=== PATIENT | male | born 1970 | race Caucasian/White ===

== ENCOUNTER 2019-07-03 20:58 | Inpatient (IN) ==
[2019-07-03] MEDS ORDERED: ALBUT/IPRATROP 3MG/0.5MG NEB 3 ML VIAL NEB STA ×3 (21:15→22:03)
[2019-07-03] MEDS ORDERED: ACETAMINOPHEN 1,000 MG/100 ML VIAL IV STA (21:15)
[2019-07-03] MEDS ORDERED: SODIUM CHLORIDE 0.9% 1000ML 1,000 ML IV ONE (21:15)
[2019-07-03 21:38] LABS: Basophils # (auto) 0.02 K/uL (0-0.2); Basophils % (auto) 0.2 %; Hematocrit (blood only) 47.7 % (42-52); Hemoglobin 16.1 g/dL (14.0-18.0); Immature Granulocytes # (auto) 0.02 K/uL (0.00-0.02); Immature Granulocytes % (auto) 0.2 %; Lymphocytes # (auto) 1.77 K/uL (1.2-3.4); Lymphocytes % (auto) 17.8 %; Mean Corpuscular Hemoglobin 33.8 pg (25-34); Mean Corpuscular Hgb Conc 33.8 g/dL (32-36); Mean Platelet Volume 9.4 fL (7.4-10.4); Monocytes # (auto) 0.78 K/uL (0.11-0.59); Monocytes % (auto) 7.8 %; Neutrophils # (auto) 7.37 K/uL (1.4-6.5); Platelet Count 231 K/uL (130-400); RDW Coefficient of Variation 14.9 % (11.5-14.5); RDW Standard Deviation 54.7 fL (36.4-46.3); Red Blood Count 4.77 M/uL (4.7-6.1); White Blood Count 9.96 K/uL (4.8-10.8)
[2019-07-03 21:43] LABS: Base Excess VBG 4.1 mEq/L; pH VBG 7.41 (7.36-7.41)
--- NOTE | 2019-07-03 21:47 | XRay Report ---
XR chest 1V portable CLINICAL HISTORY: 49 years-old Male presenting with SEPSIS. TECHNIQUE: Portable upright AP view of the chest was obtained. COMPARISON: None. FINDINGS: Median sternotomy wires. Cardiac silhouette mildly enlarged. Pulmonary vasculature and interstitium m ildly prominent. The right hemidiaphragm is poorly delineated. Bibasilar opacities, right greater rosemarie n left. Underlying trace pleural effusion is not excluded. No large pneumothorax. Osseous structures normal. : Is beneath the presumed elevated right hemidiaphragm. IMPRESSION: 1. Bibasilar opacities. Given the appearance of apparent elevation of the right hemidiaphragm with c olonic bowel gas beneath the diaphragm, it is difficult to exclude an underlying right basilar infilt rate though bibasilar atelectasis is favored. 2. Mild volume overload and congestive change. No farhat pulmonary edema. ACT 112: Negative or not required by law. Electronically signed by: Cullen Mccarthy M.D. 07/03/2019 9:45 PM
[2019-07-03 21:55] LABS: INR 1.1 (0.9-1.1); Partial Thromboplastin Time 27.7 Seconds (21.0-31.0); Prothrombin Time 10.9 Seconds (9.0-12.0)
[2019-07-03 21:56] LABS: Alanine Aminotransferase 22 U/L (12-78); Albumin Level 3.4 gm/dl (3.4-5.0); Aspartate Aminotransferase 22 U/L (15-37); BUN Creatinine Ratio 15.2 (10-20); Blood Urea Nitrogen 20 mg/dl (7-18); Calcium 9.1 mg/dl (8.5-10.1); Carbon Dioxide 28 mmol/L (21-32); Chloride 107 mmol/L (98-107); Creatinine Clr Calc Pharmacy 46.2 ml/min; Est GFR (African American) 73.2; Est GFR (Non-African American) 63.2; Glucose 159 mg/dl (70-99); Magnesium 1.9 mg/dl (1.8-2.4); Potassium 3.8 mmol/L (3.5-5.1); Sodium 140 mmol/L (136-145)
[2019-07-03 21:58] LABS: Albumin Globulin Ratio 0.9 (0.9-2); Alkaline Phosphatase 50 U/L (45-117); Bilirubin,Total 0.3 mg/dl (0.2-1); Globulin 3.6 gm/dl (2.5-4.0)
[2019-07-03] MEDS ORDERED: OPTIRAY 320 125ml IV PRN (22:14)
[2019-07-03] MEDS ORDERED: SODIUM CHLORIDE 0.9% 500 ML IV SCH (22:15)
[2019-07-03 22:19] LABS: Influenza A virus by PCR Neg for Influ A (Neg); Influenza B virus by PCR Neg for Influ B (Neg)
--- NOTE | 2019-07-03 22:32 | CT Scan Report ---
CT angio chest PE protocol CLINICAL HISTORY: 49 years-old Male presenting with hypoxia, fever, respiratory distress. TECHNIQUE: Multidetector CT angiography of the chest was performed after administration of intravenou s contrast. 3-D volumetric and/or maximum intensity projection (MIP) images were subsequently reconst ructed for review. IV contrast: 115 mL of Optiray 320. One or more dose lowering techniques were used consistent with the principles of ALARA (as low as reasonably achievable), including automatic expos ure control, mA or kV adjustment to individual patient size, and/or use of iterative reconstruction. COMPARISON: Chest x-ray performed earlier today and CT of abdomen and pelvis in 2013. CT DOSE (mGy.cm): The estimated cumulative dose is 450.90 mGy.cm. FINDINGS: Coupler topogram: Unremarkable. Pulmonary vasculature: The study is suboptimal for the assessment of the pulmonary vascular tree secondary to timing of the contrast bolus and respiratory motion artifact. No filling defect within the pulmonary arteries to noyola ggest embolus. Main pulmonary artery is not enlarged. No flattening of the interventricular septum. N o intracardiac filling defect. No reflux of contrast into the hepatic veins. Remaining chest: Soft tissues: Normal thyroid and thoracic inlet. Multiple prominent mediastinal lymph nodes, nonspeci fic. Normal aorta. Normal heart size. No pericardial or pleural effusion. Large bowel and small bowel containing right Bochdalek hernia. This previously did not contain small bowel in 2013 and was small er in size. No bowel obstruction. Moderate fat-containing left Bochdalek hernia. This was previously small in 2013. Lungs and airways: No pneumothorax. Central airways patent. Pulmonary arteries mildly enlarged relati ve to adjacent bronchi. No interlobular septal thickening. Mosaic attenuation. Extensive compressive atelectasis of the left lower lobe. There is also dependent atelectasis elsewhere. Respiratory motion artifact degrades evaluation of lung parenchyma to a moderate degree. Musculoskeletal: Degenerative changes of the spine. Well-healed sternotomy noted. IMPRESSION: 1. Allowing for suboptimal image quality, no evidence of pulmonary embolus. 2. Extensive atelectasis. No focal infiltrate to suggest pneumonia. 3. Significant interval increased size of the large right and moderate left Bochdalek hernias. This contains a significant amount of aren't obstructed small large bowel. ACT 112: Negative or not required by law. Electronically signed by: Cullen Mccarthy M.D. 07/03/2019 10:30 PM
[2019-07-03] MEDS ORDERED: ALBUMIN 25% 50 ML IV ONE (22:58)
--- NOTE | 2019-07-03 23:02 | Emergency Department Note ---
Entered by Graeme Marrufo acting as a scribe for History of Present Illness General Chief complaint: Flu Like Symptoms Stated complaint: FEVER, CONGESTION, SORE THROAT Time Seen by Provider: 07/03/19 21:12 Source: other (nurse) Limitations: other (mental status) History of Present Illness Onset (ago): day(s) (today) Location: head (general) Severity: severe (78% on room air) Pain Consistency: + constant Quality: + other (fever) Associated symptoms: + other (Positive for cough, congestion, SOB, and a fever.) The patient is a 49 year old male who presents to the emergency department with complaints of a constant fever beginning today. Per nurse, the patient is a resident at [facility]. She states that the patient developed a cough, congestion, SOB, and a fever today. She notes that the patient is 78% on room air, but she states that his oxygen saturation increases to 92% on 4L of oxygen. She notes that the patient is deaf but is able to read lips. HPI limited secondary to mental status. Home Medications Home Medications Medication Instructions Recorded Confirmed Type Biotene Dry Mouth Oral Rinse 1 tbsp PO BID 09/22/18 09/27/18 History Eucerin 1 applic TOPICAL 3XWK 09/22/18 09/27/18 History PreviDent 5000 Dry Mouth 1 applic DENTAL HS 09/22/18 09/27/18 History clobetasol 1 applic TOPICAL WK 09/22/18 09/27/18 History ketoconazole 1 dose TOPICAL 3XWK 09/22/18 09/27/18 History levothyroxine [Synthroid] 25 mcg PO QAM 09/22/18 09/27/18 History multivitamin 1 tab PO QAM 09/22/18 09/27/18 History pantoprazole 20 mg PO QAM 09/22/18 09/27/18 History polyethylene glycol 3350 [Miralax] 17 g PO QAM 09/22/18 09/27/18 History sertraline 50 mg PO QAM 09/22/18 09/27/18 History Allergies Allergy/AdvReac Type Severity Reaction Status Date / Time Bactrim Allergy rash Verified 09/10/12 09:34 sulfamethoxazole Allergy rash Verified 09/27/18 09:54 trimethoprim Allergy rash Verified 09/27/18 09:54 Past Med/Surg History Social History Preferred Language: Macedonian Communication 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 Physical Exam Vital Signs Vital Signs - 24 hr 07/03/19 20:59 07/03/19 21:17 07/03/19 21:28 Temperature 38.2 C H Temperature Source Oral Pulse Rate 104 H Pulse Rate [Finger] 101 H Respiratory Rate 24 31 H Respiratory Effort / Characteristics Non-Labored Blood Pressure 115/57 L Blood Pressure [Right Arm] Blood Pressure Mean 76 Blood Pressure Mean [Right Arm] Pulse Oximetry 84 L 93 92 Oxygen Delivery Method Room Air Nasal Cannula Nasal Cannula Oxygen Flow Rate 4 4 Sepsis Recent Fever Within 48 Hours Yes Sepsis Action Taken by Nursing Physician Notified 07/03/19 21:39 07/03/19 21:51 07/03/19 21:53 Temperature Temperature Source Pulse Rate Pulse Rate [Finger] 96 H 92 H 94 H Respiratory Rate 28 H 31 H 28 H Respiratory Effort / Characteristics Labored Non-Labored Blood Pressure Blood Pressure [Right Arm] 118/59 L 123/58 L Blood Pressure Mean Blood Pressure Mean [Right Arm] 78 79 Pulse Oximetry 92 92 94 Oxygen Delivery Method Nasal Cannula Nasal Cannula Nasal Cannula Oxygen Flow Rate 4 4 4 Sepsis Recent Fever Within 48 Hours Sepsis Action Taken by Nursing 07/03/19 22:02 07/03/19 22:24 07/03/19 22:30 Temperature 37.7 C H Temperature Source Oral Pulse Rate Pulse Rate [Finger] 99 H 107 H 102 H Respiratory Rate 28 H 28 H 28 H Respiratory Effort / Characteristics Blood Pressure Blood Pressure [Right Arm] 107/52 L 106/61 99/54 L Blood Pressure Mean Blood Pressure Mean [Right Arm] 70 76 69 Pulse Oximetry 96 91 90 Oxygen Delivery Method Nebulizer Nasal Cannula Nasal Cannula Oxygen Flow Rate 4 4 Sepsis Recent Fever Within 48 Hours Sepsis Action Taken by Nursing 07/03/19 22:37 07/03/19 22:45 Temperature Temperature Source Pulse Rate Pulse Rate [Finger] 106 H 123 H Respiratory Rate 30 H 28 H Respiratory Effort / Characteristics Labored Blood Pressure Blood Pressure [Right Arm] 97/51 L Blood Pressure Mean Blood Pressure Mean [Right Arm] 66 Pulse Oximetry 92 93 Oxygen Delivery Method Nasal Cannula Nebulizer Oxygen Flow Rate 4 Sepsis Recent Fever Within 48 Hours Sepsis Action Taken by Nursing EYES: Conjunctivae and EOM are normal. Pupils are equal, round, and reactive to light. Right eye exhibits no discharge. Left eye exhibits no discharge. No scleral icterus. NECK: Normal range of motion. Neck supple. No JVD present. No spinous process tenderness present. No carotid bruit present. No rigidity. No tracheal deviation and normal range of motion present. No Brudzinski's sign and no Kernig's sign noted. CV: Tachycardic, regular rhythm, normal heart sounds and intact distal pulses. There is no peripheral edema. Palpable radial pulses bue. PULM/CHEST: Rhonchi bilaterally, tachypneic. ABD: The abdomen is soft. Bowel sounds are normal. He has no distension. No mass is present. There is no tenderness. There is no rebound, no guarding, no Carpenter's sign and no tenderness at McBurney's point. Rovsig negative. MUSC/SKEL: Normal range of motion. There is no peripheral edema, tenderness or deformity. LYMPH: No cervical adenopathy. NEURO: Motor and sensation intact. SKIN: Skin is warm and dry. He is not diaphoretic. Course Course 2111: The patient was evaluated in room C3. A complete history and physical exam was performed. 2119: Per review of EMR, the patient has a history of down syndrome and Wo riw-Vyrhmbxep-Enudj syndrome. 2146: I rechecked the patient. He is still having rhonchi bilaterally. He is now wheezing. His oxygen saturation is stable on supplement oxygen via nasal cannula. He will receive a repeat breathing treatment. 2203: I reevaluated the patient. His vitals are stable on supplemental oxygen. He is on his second Duoneb but continues to have wheezing and rhonchi. He is d iaphoretic at this time. The patient's labs are within normal limits. His influenza, lactate, and procalcitonin are pending. He will be sent for a CTA chest. 2239: I discussed the patient's case with Dr. Wesley - Felipe Chen. 2252: I reevaluated the patient. His CTA was negative for PE or pneumonia. Lactate, influenza, and procalcitonin are negative. The patient is receiving his third Duoneb. He was admitted to Dr. Wesley. Consultations Consultation #1: I [facility] the [facility] Time: 22:40 Administered Medications Sodium Chloride (Nss) 500 mls @ 125 mls/hr IV .Q4H ERICK Stop: 08/02/19 22:14 Last Admin: 07/03/19 22:10 Dose: 125 mls/hr Documented by: [id number] Ioversol (Optiray 320 125ml) 115 ml IV ONCE PRN PRN Reason: Interaction Checking Stop: 07/07/19 22:13 Last Admin: 07/03/19 22:14 Dose: 115 ml Documented by: [id number] Discontinued Medications Albuterol (Duoneb) 3 ml NEB NOW STA Stop: 07/03/19 21:16 Last Admin: 07/03/19 21:28 Dose: 3 ml Documented by: [id number] Albuterol (Duoneb) 3 ml NEB NOW STA Stop: 07/03/19 21:17 Last Admin: 07/03/19 21:51 Dose: 3 ml Documented by: [id number] Albuterol (Duoneb) 3 ml NEB NOW STA Stop: 07/03/19 22:04 Last Admin: 07/03/19 22:35 Dose: 3 ml Documented by: [id number] Sodium Chloride (Nss 1000ml) 1,000 mls @ 999 mls/hr IV .Q1H1M ONE Stop: 07/03/19 22:15 Last Infusion: 07/03/19 22:10 Dose: 0 mls/hr Documented by: [id number] Admin: 07/03/19 21:23 Dose: 999 mls/hr Documented by: [id number] Acetaminophen (Ofirmev) 1,000 mg in 100 mls @ 400 mls/hr IV NOW STA Stop: 07/03/19 21:29 Last Infusion: 07/03/19 21:39 Dose: 0 mls/hr Documented by: [id number] Admin: 07/03/19 21:24 Dose: 400 mls/hr Documented by: [id number] Critical Care Time Critical Care Time: Yes Total Critical Care Time: 80 I have personally spent 80 minutes of critical care time in the direct management of this patient. This includes bedside care, interpretation of diagnostic studies, and testing, discussion with consultants, patient, and family members, and other required patient management activities. This 80 minutes is in excess of all separately billable procedures. Medical Decision Making Medical Records Attestation: I reviewed the patient's medical records. Home Medications Current Medication List: was personally reviewed by me Laboratory Data Attestation: I reviewed the patient's lab results. Result diagrams: 07/03/19 21:26 07/03/19 21:26 Lab Results 07/03/19 07/03/19 07/03/19 Range/Units 21:11 21:26 21:26 WBC 9.96 (4.8-10.8) K/uL RBC 4.77 (4.7-6.1) M/uL Hgb 16.1 (14.0-18.0) g/dL Hct 47.7 (42-52) % MCV 100.0 (80-100) fL MCH 33.8 (25-34) pg MCHC 33.8 (32-36) g/dL RDW Std Deviation 54.7 H (36.4-46.3) fL RDW Coeff of Soraya 14.9 H (11.5-14.5) % Plt Count 231 (130-400) K/uL MPV 9.4 (7.4-10.4) fL Immature Gran % (Auto) 0.2 % Neut % (Auto) 74.0 % Lymph % (Auto) 17.8 % [place] % (Auto) 7.8 % Eos % (Auto) 0.0 % Baso % (Auto) 0.2 % Immature Gran # (Auto) 0.02 (0.00-0.02) K/uL Neut # (Auto) 7.37 H (1.4-6.5) K/uL Lymph # (Auto) 1.77 (1.2-3.4) K/uL [place] # (Auto) 0.78 H (0.11-0.59) K/uL Eos # (Auto) 0.00 (0-0.5) K/uL Baso # (Auto) 0.02 (0-0.2) K/uL PT 10.9 (9.0-12.0) Seconds INR 1.1 (0.9-1.1) APTT 27.7 (21.0-31.0) Seconds PTT Ratio 1.0 VBG pH (7.36-7.41) VBG pCO2 (38-50) mmHg VBG pO2 mmHg VBG HCO3 mmol/L VBG O2 Saturation % VBG Base Excess mEq/L Barometric Pressure mm/Hg Sodium (136-145) mmol/L Potassium (3.5-5.1) mmol/L Chloride (98-107) mmol/L Carbon Dioxide (21-32) mmol/L Anion Gap (3-11) BUN (7-18) mg/dl Creatinine (0.6-1.4) mg/dl Est Cr Clr Drug Dosing ml/min Est GFR ( Amer) Est GFR (Non-Af Amer) BUN/Creatinine Ratio (10-20) Glucose (70-99) mg/dl Lactate (0.4-2.0) mmol/L Calcium (8.5-10.1) mg/dl Magnesium (1.8-2.4) mg/dl Total Bilirubin (0.2-1) mg/dl AST (15-37) U/L ALT (12-78) U/L Alkaline Phosphatase (45-117) U/L Total Protein (6.4-8.2) gm/dl Albumin (3.4-5.0) gm/dl Globulin (2.5-4.0) gm/dl Albumin/Globulin Ratio (0.9-2) Procalcitonin (0-0.5) ng/ml Influenza Type A (PCR) Neg for Influ A (Neg) Influenza Type B (PCR) Neg for Influ B (Neg) 07/03/19 07/03/19 07/03/19 Range/Units 21:26 21:26 21:26 WBC (4.8-10.8) K/uL RBC (4.7-6.1) M/uL Hgb (14.0-18.0) g/dL Hct (42-52) % MCV (80-100) fL MCH (25-34) pg MCHC (32-36) g/dL RDW Std Deviation (36.4-46.3) fL RDW Coeff of Soraya (11.5-14.5) % Plt Count (130-400) K/uL MPV (7.4-10.4) fL Immature Gran % (Auto) % Neut % (Auto) % Lymph % (Auto) % [place] % (Auto) % Eos % (Auto) % Baso % (Auto) % Immature Gran # (Auto) (0.00-0.02) K/uL Neut # (Auto) (1.4-6.5) K/uL Lymph # (Auto) (1.2-3.4) K/uL [place] # (Auto) (0.11-0.59) K/uL Eos # (Auto) (0-0.5) K/uL Baso # (Auto) (0-0.2) K/uL PT (9.0-12.0) Seconds INR (0.9-1.1) APTT (21.0-31.0) Seconds PTT Ratio VBG pH (7.36-7.41) VBG pCO2 (38-50) mmHg VBG pO2 mmHg VBG HCO3 mmol/L VBG O2 Saturation % VBG Base Excess mEq/L Barometric Pressure mm/Hg Sodium 140 (136-145) mmol/L Potassium 3.8 (3.5-5.1) mmol/L Chloride 107 (98-107) mmol/L Carbon Dioxide 28 (21-32) mmol/L Anion Gap 5.0 (3-11) BUN 20 H (7-18) mg/dl Creatinine 1.30 (0.6-1.4) mg/dl Est Cr Clr Drug Dosing 46.2 ml/min Est GFR ( Amer) 73.2 Est GFR (Non-Af Amer) 63.2 BUN/Creatinine Ratio 15.2 (10-20) Glucose 159 H (70-99) mg/dl Lactate 0.9 (0.4-2.0) mmol/L Calcium 9.1 (8.5-10.1) mg/dl Magnesium 1.9 (1.8-2.4) mg/dl Total Bilirubin 0.3 (0.2-1) mg/dl AST 22 (15-37) U/L ALT 22 (12-78) U/L Alkaline Phosphatase 50 (45-117) U/L Total Protein 7.0 (6.4-8.2) gm/dl Albumin 3.4 (3.4-5.0) gm/dl Globulin 3.6 (2.5-4.0) gm/dl Albumin/Globulin Ratio 0.9 (0.9-2) Procalcitonin < 0.05 (0-0.5) ng/ml Influenza Type A (PCR) (Neg) Influenza Type B (PCR) (Neg) 07/03/19 Range/Units 21:27 WBC (4.8-10.8) K/uL RBC (4.7-6.1) M/uL Hgb (14.0-18.0) g/dL Hct (42-52) % MCV (80-100) fL MCH (25-34) pg MCHC (32-36) g/dL RDW Std Deviation (36.4-46.3) fL RDW Coeff of Soraya (11.5-14.5) % Plt Count (130-400) K/uL MPV (7.4-10.4) fL Immature Gran % (Auto) % Neut % (Auto) % Lymph % (Auto) % [place] % (Auto) % Eos % (Auto) % Baso % (Auto) % Immature Gran # (Auto) (0.00-0.02) K/uL Neut # (Auto) (1.4-6.5) K/uL Lymph # (Auto) (1.2-3.4) K/uL [place] # (Auto) (0.11-0.59) K/uL Eos # (Auto) (0-0.5) K/uL Baso # (Auto) (0-0.2) K/uL PT (9.0-12.0) Seconds INR (0.9-1.1) APTT (21.0-31.0) Seconds PTT Ratio VBG pH 7.41 (7.36-7.41) VBG pCO2 48 (38-50) mmHg VBG pO2 43 mmHg VBG HCO3 30 mmol/L VBG O2 Saturation 77.0 % VBG Base Excess 4.1 mEq/L Barometric Pressure 737.6 mm/Hg Sodium (136-145) mmol/L Potassium (3.5-5.1) mmol/L Chloride (98-107) mmol/L Carbon Dioxide (21-32) mmol/L Anion Gap (3-11) BUN (7-18) mg/dl Creatinine (0.6-1.4) mg/dl Est Cr Clr Drug Dosing ml/min Est GFR ( Amer) Est GFR (Non-Af Amer) BUN/Creatinine Ratio (10-20) Glucose (70-99) mg/dl Lactate (0.4-2.0) mmol/L Calcium (8.5-10.1) mg/dl Magnesium (1.8-2.4) mg/dl Total Bilirubin (0.2-1) mg/dl AST (15-37) U/L ALT (12-78) U/L Alkaline Phosphatase (45-117) U/L Total Protein (6.4-8.2) gm/dl Albumin (3.4-5.0) gm/dl Globulin (2.5-4.0) gm/dl Albumin/Globulin Ratio (0.9-2) Procalcitonin (0-0.5) ng/ml Influenza Type A (PCR) (Neg) Influenza Type B (PCR) (Neg) Imaging Data Radiologist's Impression: Radiology results as stated below per my review and the radiologist's interpretation: XR chest 1V portable FINDINGS: Median sternotomy wires. Cardiac silhouette mildly enlarged. Pulmonary vasculature and interstitium mildly prominent. The right hemidiaphragm is poorly delineated. Bibasilar opacities, right greater than left. Underlying trace pleural effusion is not excluded. No large pneumothorax. Osseous structures normal. : Is beneath the presumed elevated right hemidiaphragm. IMPRESSION: 1. Bibasilar opacities. Given the appearance of apparent elevation of the right hemidiaphragm with colonic bowel gas beneath the diaphragm, it is difficult to exclude an underlying right basilar infiltrate though bibasilar atelectasis is favored. 2. Mild volume overload and congestive change. No farhat pulmonary edema. ACT 112: Negative or not required by law. Electronically signed by: Cullen Mccarthy M.D. 07/03/2019 9:[address] angio chest PE protocol FINDINGS: Digital Cartographic Technician topogram: Unremarkable. Pulmonary vasculature: The study is suboptimal for the assessment of the pulmonary vascular tree secondary to timing of the contrast bolus and respiratory motion artifact. No filling defect within the pulmonary arteries to suggest embolus. Main pulmonary artery is not enlarged. No flattening of the interventricular septum. No intracardiac filling defect. No reflux of contrast into the hepatic veins. Remaining chest: Soft tissues: Normal thyroid and thoracic inlet. Multiple prominent mediastinal lymph nodes, nonspecific. Normal aorta. Normal heart size. No pericardial or pleural effusion. Large bowel and small bowel containing right Bochdalek hernia. This previously did not contain small bowel in 2013 and was smaller in size. No bowel obstruction. Moderate fat-containing left Bochdalek hernia. This was previously small in 2013. Lungs and airways: No pneumothorax. Central airways patent. Pulmonary arteries mildly enlarged relative to adjacent bronchi. No interlobular septal thickening. Mosaic attenuation. Extensive compressive atelectasis of the left lower lobe. There is also dependent atelectasis elsewhere. Respiratory motion artifact degrades evaluation of lung parenchyma to a moderate degree. Musculoskeletal: Degenerative changes of the spine. Well-healed sternotomy noted. IMPRESSION: 1. Allowing for suboptimal image quality, no evidence of pulmonary embolus. 2. Extensive atelectasis. No focal infiltrate to suggest pneumonia. 3. Significant interval increased size of the large right and moderate left Bochdalek hernias. This contains a significant amount of aren't obstructed small large bowel. ACT 112: Negative or not required by law. Electronically signed by: Cullen Mccarthy M.D. 07/03/2019 10:30 PM ECG Data Attestation: I personally reviewed and interpreted this ECG as follows: Indication: + SOB/dyspnea Rate (beats per minute): 98 Rhythm: + sinus rhythm ECG ST segments: no ST depression and no ST elevation Additional Comments: QR/QRS/QTC within normal limits. Blood Pressure Blood Pressure Findings: Normal blood pressure Blood Pressure Disposition: did not require urgent referral MDM Narrative 2111: The patient was evaluated in room C3. A complete history and physical exam was performed. 2119: Per review of EMR, the patient has a history of down syndrome and Kampd-Wcajbqgiq-Dsvnd syndrome. 2146: I rechecked the patient. He is still having rhonchi bilaterally. He is now wheezing. His oxygen saturation is stable on supplement oxygen via nasal cannula. He will receive a repeat breathing treatment. 2203: I reevaluated the patient. His vitals are stable on supplemental oxygen. He is on his second Duoneb but continues to have wheezing and rhonchi. He is diaphoretic at this time. The patient's labs are within normal limits. His influenza, lactate, and procalcitonin are pending. He will be sent for a CTA chest. 0: I discussed the patient's case with Dr. Wesley - [facility]. 2253: I reevaluated the patient. His CTA was negative for PE or pneumonia. Lactate, influenza, and procalcitonin are negative. The patient is receiving his third Duoneb. He was admitted to Dr. Wesley. Impression & Plan Hypoxia Discharge Plan Visit Data Chief Complaint: Flu Like Symptoms Stated Complaint: FEVER, CONGESTION, SORE THROAT ED Provider: Govind Hollis Discharge Problem: Hypoxia Forms Stand Alone Forms: My [facility] Prescriptions Prescriptions: No Action multivitamin Tablet 1 tab PO QAM RF: 0 ketoconazole 2 % Shampoo 1 dose TOPICAL 3XWK RF: 0 levothyroxine [Synthroid] 25 mcg Tablet 25 mcg PO QAM RF: 0 pantoprazole 20 mg Tablet,Delayed Release (Dr/Ec) 20 mg PO QAM RF: 0 polyethylene glycol 3350 [Miralax] 17 gram/dose Powder 17 g PO QAM RF: 0 clobetasol 0.05 % Solution 1 applic TOPICAL WK RF: 0 sertraline 50 mg Tablet 50 mg PO QAM RF: 0 PreviDent 5000 Dry Mouth 1.1 % Gel 1 applic DENTAL HS RF: 0 Eucerin Cream 1 applic TOPICAL 3XWK RF: 0 Biotene Dry Mouth Oral Rinse Mouthwash 1 tbsp PO BID RF: 0 The scribe's documentation has been prepared under my direction and personally reviewed by me in its entirety. I confirm that the note above accurately reflect s all work, treatment, procedures, and medical decision making performed by me.
[2019-07-03] MEDS ORDERED: DOXYCYCLINE HYCLATE 100 MG in DEXTROSE 5% 100 ML IV STA (23:11)
[2019-07-03] MEDS ORDERED: POTASSIUM CHLORIDE 20 MEQ TABCR PO STA (23:12)
[2019-07-03] MEDS ORDERED: MAGNESIUM SULFATE / D5W 1 GM/100 ML BAG IV STA (23:20)
[2019-07-03 23:34] LABS: NT Pro B Type Natriuretic Pept 159 pg/ml (0-900)
--- NOTE | 2019-07-03 23:41 | History & Physical Report ---
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 Hyperglycemia rule out DM Medical telemetry Supplemental O2 Solu-Medrol 1 dose given complicated bronchitis causing hypoxemia, may benefit from additional steroid doses Doxycycline, nebs RTC IVF Check hemoglobin A1c PT OT eval DVT prophylaxis. Lovenox subcu Full code salesperson [employer] glassware for patient's care is Mr. Blayne Morejon, contact #[phone]. Total critical time was 45 minutes. Text document was generated using [employer] voice recognition software. It may contain grammatical or spelling errors. Kindly contact undersigned for clarification of any documentation item in question. History of Present Illness Chief Complaint: Low O2 as per records Primary Care Provider: Kosta Tovar DO History obtained from patient, caregiver, and records. Limited history from patient secondary to hearing/intellectual impairment. 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 Today patient noted by caregivers to have junky cough, congestion, sore throat, fever symptoms at [facility]. Patient denies chest pain. Admits to some S OB. No witnessed aspiration. No abdominal pain symptoms. No known recent sick contacts. O2 sats noted to be 70s on room air at home. Patient brought to the ER for evaluation. Medical History as above Surgical History : Cochlear device implantation, mitral valve reconstruction, ASD repair Family History : Breast cancer Personal/Social history : Non-smoker, no EtOH intake, [place] resident Allergies Allergy/AdvReac Type Severity Reaction Status Date / Time Bactrim Allergy rash Verified 09/10/12 09:34 sulfamethoxazole Allergy rash Verified 07/03/19 23:12 trimethoprim Allergy rash Verified 07/03/19 23:12 Home Medications Home Medications Medication Instructions Recorded Confirmed Type Biotene Dry Mouth Oral Rinse 1 tbsp PO BID 09/22/18 07/03/19 History Eucerin 1 applic TOPICAL 3XWK 09/22/18 07/03/19 History clobetasol 2 applic TOPICAL WK 09/22/18 07/03/19 History fluoride (sodium) [PreviDent 5000 1 applic DENTAL HS 09/22/18 07/03/19 History Dry Mouth] ketoconazole 1 dose TOPICAL 3XWK 09/22/18 07/03/19 History levothyroxine [Synthroid] 25 mcg PO QAM 09/22/18 07/03/19 History multivitamin 1 tab PO QAM 09/22/18 07/03/19 History pantoprazole 20 mg PO QAM 09/22/18 07/03/19 History sertraline 50 mg PO QAM 09/22/18 07/03/19 History methylcellulose (laxative) 1 ea PO DAILY 07/03/19 07/03/19 History [Citrucel Sugar Free] Past Med/Surg History Social History Preferred Language: Uzbek Communication Ability: Impaired Nitrate Operator Required: No Beliefs That Will Affect Care: None Current Living Situation: Personal Care Facility Current Living Situation Comment: Lives at [facility] Feels Safe at Home: Yes Smoking Status: Never smoker Hx Alcohol Use: No Hx Substance Use: No Review of Systems Review of Systems: Could not be reliably obtained Physical Exam Physical Exam: GENERAL: uncomfortable, hard of hearing, min respiratory distress SKIN: Normal color, warm HEENT: [place] palpebral conjunctivae, no ptosis, dry buccal mucosa, O2 mask in place NECK : Supple, short neck, no tenderness CHEST : Expiratory wheezes, bilateral rhonchi , no tenderness HEART : Tachycardic , no obvious murmurs ABDOMEN: Some distention, nontender EXTREMITIES : No LE swelling/tenderness, no other conspicuous deformities noted NEUROLOGIC : hard of hearing, no facial asymmetry, no other gross focality Results & Data Vital Signs (Past 12 Hours) Vital Signs Temp Pulse Pulse Resp BP BP Pulse Ox 07/03/19 23:23 114 H 24 94/46 L 90 07/03/19 23:01 117 H 32 H 112/51 L 90 07/03/19 22:45 123 H 28 H 97/51 L 93 07/03/19 22:37 106 H 30 H 92 07/03/19 22:30 102 H 28 H 99/54 L 90 07/03/19 22:24 107 H 28 H 106/61 91 07/03/19 22:02 37.7 C H 99 H 28 H 107/52 L 96 07/03/19 21:53 94 H 28 H 123/58 L 94 07/03/19 21:51 92 H 31 H 92 07/03/19 21:39 96 H 28 H 118/59 L 92 07/03/19 21:28 101 H 31 H 92 07/03/19 21:17 93 07/03/19 20:59 38.2 C H 104 H 24 115/57 L 84 L Laboratory Results Laboratory Results WBC 9.96 K/uL (4.8-10.8) 07/03/19 21: RBC 4.77 M/uL (4.7-6.1) 07/03/19 21:26 Hgb 16.1 g/dL (14.0-18.0) 07/03/19 21: Hct 47.7 % (42-52) 07/03/19 21:26 MCV 100.0 fL (80-100) 07/03/19 21: MCH 33.8 pg (25-34) 07/03/19 21: MCHC 33.8 g/dL (32-36) 07/03/19 21:26 RDW Std Deviation 54.7 fL (36.4-46.3) H 07/03/19 21:26 RDW Coeff of Soraya 14.9 % (11.5-14.5) H 07/03/19 21: Plt Count 231 K/uL (130-400) 07/03/19 21: MPV 9.4 fL (7.4-10.4) 07/03/19 21:26 Immature Gran % (Auto) 0.2 % 07/03/19 21:26 Neut % (Auto) 74.0 % 07/03/19 21: Lymph % (Auto) 17.8 % 07/03/19 21: [place] % (Auto) 7.8 % 07/03/19 21: Eos % (Auto) 0.0 % 07/03/19 21:26 Baso % (Auto) 0.2 % 07/03/19 21: Immature Gran # (Auto) 0.02 K/uL (0.00-0.02) 07/03/19 21: Neut # (Auto) 7.37 K/uL (1.4-6.5) H 07/03/19 21: Lymph # (Auto) 1.77 K/uL (1.2-3.4) 07/03/19: [place] # (Auto) 0.78 K/uL (0.11-0.59) H 07/03/19: Eos # (Auto) 0.00 K/uL (0-0.5) 07/03/19: Baso # (Auto) 0.02 K/uL (0-0.2) 07/03/19: PT 10.9 Seconds (9.0-12.0) 07/03/19: INR 1.1 (0.9-1.1) 07/03/19: APTT 27.7 Seconds (21.0-31.0) 07/03/19: PTT Ratio 1.0 07/03/19: VBG pH 7.41 (7.36-7.41) 07/03/19: VBG pCO2 48 mmHg (38-50) 07/03/19: VBG pO2 43 mmHg 07/03/19: VBG HCO3 30 mmol/L 07/03/19: VBG O2 Saturation 77.0 % 07/03/19: VBG Base Excess 4.1 mEq/L 07/03/19: Barometric Pressure 737.6 mm/Hg 07/03/19: Sodium 140 mmol/L (136-145) 07/03/19: Potassium 3.8 mmol/L (3.5-5.1) 07/03/19: Chloride 107 mmol/L (98-107) 07/03/19: Carbon Dioxide 28 mmol/L (21-32) 07/03/19: Anion Gap 5.0 (3-11) 07/03/19: BUN 20 mg/dl (7-18) H 07/03/19: Creatinine 1.30 mg/dl (0.6-1.4) 07/03/19: Est Cr Clr Drug Dosing 46.2 ml/min 07/03/19: Est GFR ( Amer) 73.2 02/17/20 21:26 Est GFR (Non-Af Amer) 63.2 07/03/19 21: BUN/Creatinine Ratio 15.2 (10-20) 07/03/19 21: Glucose 159 mg/dl (70-99) H 07/03/19 21: Lactate 0.9 mmol/L (0.4-2.0) 07/03/19 21: Calcium 9.1 mg/dl (8.5-10.1) 07/03/19: Magnesium 1.9 mg/dl (1.8-2.4) 07/03/19 21: Total Bilirubin 0.3 mg/dl (0.2-1) 07/03/19 21: AST 22 U/L (15-37) 07/03/19: ALT 22 U/L (12-78) 07/03/19 21: Alkaline Phosphatase 50 U/L (45-117) 07/03/19 21: NT-Pro-B Natriuret Pep 159 pg/ml (0-900) 07/03/19 21: Total Protein 7.0 gm/dl (6.4-8.2) 07/03/19 21: Albumin 3.4 gm/dl (3.4-5.0) 07/03/19: Globulin 3.6 gm/dl (2.5-4.0) 07/03/19 21: Albumin/Globulin Ratio 0.9 (0.9-2) 07/03/19 21: Procalcitonin < 0.05 ng/ml (0-0.5) 07/03/19: TSH 1.800 uIu/ml (0.300-4.500) 07/03/19 21: Influenza Type A (PCR) Neg for Influ A (Neg) 07/03/19 21:11 Influenza Type B (PCR) Neg for Influ B (Neg) 07/03/19 21:[address] chest: 1. Allowing for suboptimal image quality, no evidence of pulmonary embolus. 2. Extensive atelectasis. No focal infiltrate to suggest pneumonia. 3. Significant interval increased size of the large right and moderate left Bochdalek hernias. This contains a significant amount of aren't obstructed small large bowel. EKG as per my interpretation : Rate 100, NSR, LAD, LAFB, incomplete RBBB, T wave abnormalities inferior leads
[2019-07-03 23:47] LABS: Troponin I < 0.015 ng/ml (0-0.045)
[2019-07-04] MEDS ORDERED: PROMETHAZINE HCL 12.5 MG in SODIUM CHLORIDE 0.9% 50 ML IV PRN (00:49)
[2019-07-04] MEDS ORDERED: ACETAMINOPHEN 325 MG TAB PO PRN (00:49)
[2019-07-04] MEDS ORDERED: NORMOSOL-R 1,000 ML IV ONE (00:49)
[2019-07-04] MEDS ORDERED: KETOROLAC TROMETHAMINE 15 MG/ML VIAL IV PRN (00:49)
[2019-07-04] MEDS ORDERED: IBUPROFEN 200 MG TAB PO PRN (00:49)
[2019-07-04] MEDS ORDERED: XOPENEX/ATROVENT 1.25mg/0.5MG NEB COMBO NEB SCH (01:00)
[2019-07-04 01:49] LABS: Appearance Urine Clear (Clear); Bilirubin Urine Negative (Negative); Blood Urine Negative (Negative); Color Urine Yellow; Glucose Urine UA Negative (Negative); Ketones Urine Negative (Negative); Leukocyte Esterase Urine Negative (Negative); Nitrite Urine Negative (Negative); Protein Urine Negative (Negative); Specific Gravity Urine > 1.045 (1.000-1.030); Urobilinogen Urine Negative (Negative); pH Urine 5.5 (4.5-7.5)
[2019-07-04] MEDS: LEVOTHYROXINE SODIUM 25 MCG TABLET PO SCH (05:30)
[2019-07-04 06:22] LABS: Estimated Average Glucose 114 mg/dl; Hemoglobin A1C 5.6 % (4.5-5.6)
[2019-07-04] MEDS: IPRATROPIUM BROMIDE NEB SOLN 0.02% 2.5 ML VIAL INH SCH ×3 (07:16→19:33)
[2019-07-04] MEDS: LEVALBUTEROL 1.25MG/0.5ML NEB INH SCH ×3 (07:17→19:33)
[2019-07-04 07:24] LABS: Basophils # (auto) 0.01 K/uL (0-0.2); Basophils % (auto) 0.1 %; Hematocrit (blood only) 44.3 % (42-52); Hemoglobin 14.9 g/dL (14.0-18.0); Immature Granulocytes # (auto) 0.05 K/uL (0.00-0.02); Immature Granulocytes % (auto) 0.3 %; Lymphocytes # (auto) 0.48 K/uL (1.2-3.4); Lymphocytes % (auto) 3.3 %; Mean Corpuscular Hemoglobin 33.6 pg (25-34); Mean Corpuscular Hgb Conc 33.6 g/dL (32-36); Mean Platelet Volume 9.4 fL (7.4-10.4); Monocytes # (auto) 0.67 K/uL (0.11-0.59); Monocytes % (auto) 4.6 %; Neutrophils # (auto) 13.46 K/uL (1.4-6.5); Neutrophils % (auto) 91.7 %; Platelet Count 199 K/uL (130-400); RDW Standard Deviation 55.1 fL (36.4-46.3); Red Blood Count 4.43 M/uL (4.7-6.1); White Blood Count 14.67 K/uL (4.8-10.8)
[2019-07-04] MEDS: ENOXAPARIN INJ 30 MG/0.3 ML SYR SQ SCH (07:53)
[2019-07-04] MEDS: METHYLCELLULOSE POWDER 454 GM JAR PO SCH (07:53)
[2019-07-04] MEDS: DOXYCYCLINE HYCLATE 100 MG CAP PO SCH ×2 (07:54→21:03)
[2019-07-04] MEDS: PANTOprazole 40 MG TAB PO SCH (07:54)
[2019-07-04] MEDS: MULTIVITAMIN TAB PO SCH (07:54)
[2019-07-04] MEDS: SERTRALINE HCL 50 MG TABLET PO SCH (07:54)
[2019-07-04 07:59] LABS: BUN Creatinine Ratio 11.3 (10-20); Calcium 8.4 mg/dl (8.5-10.1); Est GFR (African American) 74.6; Est GFR (Non-African American) 64.4
[2019-07-04] MEDS ORDERED: [UNRECOGNIZED DRUG - OTHER] PO SCH (09:00)
[2019-07-04] MEDS ORDERED: VANCOMYCIN CONSULT ACTIVE PRN (16:11)
[2019-07-04] MEDS ORDERED: VANCOMYCIN HCL 1,500 MG in SODIUM CHLORIDE 0.9% 500 ML IV STA (16:29)
--- NOTE | 2019-07-04 18:30 | Hospitalist Progress Note ---
Date of Service July 04, 2019 Assessment & Plan (1) Acute hypoxemic respiratory failure: Secondary to complicated bronchitis CXR showed Bibasilar opacities. Given the appearance of apparent elevation of the right hemidiaphragm with colonic bowel gas beneath the diaphragm, it is difficult to exclude an underlying right basilar infiltrate though bibasilar atelectasis is favored. CTA chest showed extensive atelectasis. No focal infiltrate to suggest pneumonia. Continue doxycycline Blood cx positive for gram positive cocci in clusters Vanco IV added Bacteremia Gram Positve cocci in Clusters Vanco IV adding Blood cx repeat Will get an echo Consider GI consult if no contamination Continue monitor Hx Down syndrome Stable chronic diastolic dysfunction No sign of fluid overload Hypothyroidism Continue Levothyroxine CODE status Full Code Admission and Anticipated Discharge Date Admission Date: July 03, 2019 Subjective Pt was seen and examined Lying in bed with no distress He ssaid that he feels fine Denies any symptom Physical Exam Physical Exam: General- No acute distress Head- atraumatic Eyes- PERRL, EOMI, ENT- +decrease hearing function Neck- supple, no JVD Lungs- + dimished BS Heart- regular rhythm; no murmur Abdomen- normal bowel sounds, soft, nontender Extremities- no calf tenderness Neuro- alert, oriented x 3; PERRL, EOMI; no facial palsy; no dysarthria Skin- warm & dry Results & Data ([facility]) Vital Signs (Past 12 Hours) Vital Signs Temp Pulse Resp BP Pulse Ox 07/04/19 15:36 37.1 C 60 18 110/51 L 93 07/04/19 13:37 67 24 93 07/04/19 12:09 36.8 C 64 18 109/65 97 07/04/19 07:39 36.6 C 70 18 98/57 L 90 07/04/19 07:19 87 25 H 91
--- NOTE | 2019-07-04 21:27 | Electrocardiogram Report ---
Test Reason : Blood Pressure : / mmHG Vent. Rate : 098 BPM Atrial Rate : 098 BPM P-R Int : 154 ms QRS Dur : 080 ms QT Int : 328 ms P-R-T Axes : 051 -34 031 degrees QTc Int : 418 ms Normal sinus rhythm Left axis deviation Abnormal ECG When compared with ECG of 30-AUG-2004 21:44, Ajghu-fwicjinnq-[id number] pattern is no longer Present Confirmed by Aden Marie ([id number]) on 07/04/2019 9:27:14 PM Referred By: REFERRED SELF Confirmed By:Aden Marie
--- NOTE | 2019-07-04 21:33 | Pharmacy Report ---
Pharmacy Abx Dose Short Note - Date of Service July 04, 2019 - Assessment & Plan Assessment 49 year old M receiving IV Vancomycin for treatment of bacteremia; 1 of 2 blood culture growing G+ cocci in clusters Day # 1 of antimicrobial therapy. * Renal function appears to be at baseline. Most recent sCr = 1.28 mg/dL with estimated CrCl ~48 mL/min. Estimated pharmacokinetic parameters: * Ke ~0.044/hr, T1/2 ~15.75 hrs Plan Vancomycin * Give Vancomycin 1500mg (~25mg/kg) IV x 1 as loading dose * Initiate dose of 1000mg (~17mg/kg) IV every 18 hours * Goal trough level for bacteremia : 15 to 20 mcg/mL * Trough level ordered for: 07/06/19 @ 0330 (this is an early level not reflective of steady state, but want to assess dosing regimen earlier due to indication of bacteremia) Pharmacy will continue to follow and will adjust dose/frequency as necessary. Thank you.
[2019-07-05] MEDS: LEVALBUTEROL 1.25MG/0.5ML NEB INH SCH ×4 (01:25→19:21)
[2019-07-05] MEDS: IPRATROPIUM BROMIDE NEB SOLN 0.02% 2.5 ML VIAL INH SCH ×4 (01:25→19:21)
[2019-07-05] MEDS: LEVOTHYROXINE SODIUM 25 MCG TABLET PO SCH (06:01)
[2019-07-05] MEDS ORDERED: PERFLUTREN LIPID MICROSPHERE (DEFINITY) IV ONE (06:54)
[2019-07-05] MEDS: METHYLCELLULOSE POWDER 454 GM JAR PO SCH (07:52)
[2019-07-05] MEDS: EUCERIN CR 120 GM JAR EXT SCH (07:54)
[2019-07-05] MEDS: DOXYCYCLINE HYCLATE 100 MG CAP PO SCH ×2 (07:54→20:08)
[2019-07-05] MEDS: SERTRALINE HCL 50 MG TABLET PO SCH (07:55)
[2019-07-05] MEDS: MULTIVITAMIN TAB PO SCH (07:55)
[2019-07-05] MEDS: PANTOprazole 40 MG TAB PO SCH (07:55)
[2019-07-05] MEDS: ENOXAPARIN INJ 30 MG/0.3 ML SYR SQ SCH ×2 (07:55→07:58)
[2019-07-05 08:01] LABS: Hemoglobin 15.1 g/dL (14.0-18.0); Mean Corpuscular Hemoglobin 33.2 pg (25-34); Mean Corpuscular Hgb Conc 32.8 g/dL (32-36); Mean Corpuscular Volume 101.1 fL (80-100); Mean Platelet Volume 9.6 fL (7.4-10.4); Platelet Count 185 K/uL (130-400); RDW Coefficient of Variation 15.3 % (11.5-14.5); RDW Standard Deviation 57.3 fL (36.4-46.3); Red Blood Count 4.55 M/uL (4.7-6.1); White Blood Count 10.38 K/uL (4.8-10.8)
[2019-07-05 08:30] LABS: BUN Creatinine Ratio 15.4 (10-20); Calcium 8.7 mg/dl (8.5-10.1); Creatinine Clr Calc Pharmacy 61.7 ml/min; Est GFR (African American) 101.8; Est GFR (Non-African American) 87.8; Potassium 4.1 mmol/L (3.5-5.1)
--- NOTE | 2019-07-05 10:04 | Hospitalist Progress Note ---
Date of Service July 05, 2019 Assessment & Plan (1) Acute hypoxemic respiratory failure: Secondary to complicated bronchitis CXR showed Bibasilar opacities. Given the appearance of apparent elevation of the right hemidiaphragm with colonic bowel gas beneath the diaphragm, it is difficult to exclude an underlying right basilar infiltrate though bibasilar atelectasis is favored. CTA chest showed extensive atelectasis. No focal infiltrate to suggest pneumonia. Continue doxycycline Blood cx positive for gram positive cocci in clusters Vanco IV added Bacteremia Gram Positve cocci in Clusters, now reported as CONS in one bottle Repeat 2 sets of blood culture today Continue vancomycin for now until if repeat is negative tomorrow as this may be contaminant Considering reported history of congenital heart disease and repair, will get TTE Hx Down syndrome Stable Chronic diastolic dysfunction No sign of fluid overload Hypothyroidism Continue Levothyroxine CODE status Full Code Admission and Anticipated Discharge Date Admission Date: July 03, 2019 Subjective Patient seen and examined No complaints Poor historian Review of Systems Constitutional: no problem reported Eyes: no problem reported Ear, Nose, Mouth, Throat: no problem reported Respiratory: no problem reported Cardiovascular: no problem reported Gastrointestinal: no problem reported Genitourinary: no problem reported Musculoskeletal: no problem reported Neurologic: no problem reported Psychiatric: no problem reported Physical Exam Constitutional: + well hydrated; no acute distress Respiratory: normal respiratory effort, lungs clear to auscultation Cardiovascular: RRR, no murmur, no edema Gastrointestinal (Abdomen): normal bowel sounds, soft, nontender, no hepatosplenomegaly Skin: no rashes, warm and dry Neurologic: moves all extremities; no focal motor deficits Psychiatric: Insight: + poor insight AOx1 only , states he is at home when asked about place. Results & Data ([facility]) Vital Signs (Past 12 Hours) Vital Signs Temp Pulse Pulse Resp BP Pulse Ox 07/05/19 07:26 36.5 C 56 L 18 108/72 94 07/05/19 07:06 53 L 18 96 07/05/19 02:53 62 07/05/19 02:20 36.6 C 60 20 92/55 L 95 07/05/19 01:25 74 26 H 83 L 07/04/19 23:45 36.7 C 51 L 18 92/54 L 93 Laboratory Results Laboratory Results - last 24 hr 07/05/19 07/05/19 07:42 07:42 WBC 10.38 RBC 4.55 L Hgb 15.1 Hct 46.0 MCV 101.1 H MCH 33.2 MCHC 32.8 RDW Std Deviation 57.3 H RDW Coeff of Soraya 15.3 H Plt Count 185 MPV 9.6 Sodium 142 Potassium 4.1 Chloride 110 H Carbon Dioxide 28 Anion Gap 4.0 BUN 15 Creatinine 0.99 Est Cr Clr Drug Dosing 61.7 Est GFR ( Amer) 101.8 Est GFR (Non-Af Amer) 87.8 BUN/Creatinine Ratio 15.4 Glucose 91 Calcium 8.7
[2019-07-05] MEDS: VANCOMYCIN HCL 1,000 MG in SODIUM CHLORIDE 0.9% 250 ML IV SCH (10:42)
[2019-07-06] MEDS: LEVALBUTEROL 1.25MG/0.5ML NEB INH SCH ×4 (00:38→20:27)
[2019-07-06] MEDS: IPRATROPIUM BROMIDE NEB SOLN 0.02% 2.5 ML VIAL INH SCH ×4 (00:38→20:27)
[2019-07-06] MEDS ORDERED: VANCOMYCIN TROUGH ONE (03:30)
[2019-07-06 03:32] LABS: Hematocrit (blood only) 44.9 % (42-52); Hemoglobin 15.1 g/dL (14.0-18.0); Mean Corpuscular Hemoglobin 33.9 pg (25-34); Mean Corpuscular Hgb Conc 33.6 g/dL (32-36); Mean Corpuscular Volume 100.7 fL (80-100); Mean Platelet Volume 9.3 fL (7.4-10.4); Platelet Count 183 K/uL (130-400); RDW Coefficient of Variation 15.1 % (11.5-14.5); RDW Standard Deviation 56.1 fL (36.4-46.3); Red Blood Count 4.46 M/uL (4.7-6.1); White Blood Count 6.47 K/uL (4.8-10.8)
[2019-07-06 03:50] LABS: BUN Creatinine Ratio 14.7 (10-20); Calcium 8.4 mg/dl (8.5-10.1); Est GFR (African American) 88.6; Est GFR (Non-African American) 76.5; Potassium 3.8 mmol/L (3.5-5.1)
[2019-07-06] MEDS: VANCOMYCIN HCL 1,000 MG in SODIUM CHLORIDE 0.9% 250 ML IV SCH (04:08)
[2019-07-06] MEDS: LEVOTHYROXINE SODIUM 25 MCG TABLET PO SCH (06:07)
[2019-07-06] MEDS: MULTIVITAMIN TAB PO SCH (07:43)
[2019-07-06] MEDS: METHYLCELLULOSE POWDER 454 GM JAR PO SCH (07:43)
[2019-07-06] MEDS: ENOXAPARIN INJ 30 MG/0.3 ML SYR SQ SCH (07:43)
[2019-07-06] MEDS: DOXYCYCLINE HYCLATE 100 MG CAP PO SCH (07:43)
[2019-07-06] MEDS: SERTRALINE HCL 50 MG TABLET PO SCH (07:43)
[2019-07-06] MEDS: PANTOprazole 40 MG TAB PO SCH (07:43)
--- NOTE | 2019-07-06 09:58 | Hospitalist Progress Note ---
Date of Service July 06, 2019 Assessment & Plan (1) Acute hypoxemic respiratory failure: Secondary to complicated bronchitis and atelectasis CXR showed Bibasilar opacities. Given the appearance of apparent elevation of the right hemidiaphragm with colonic bowel gas beneath the diaphragm, it is difficult to exclude an underlying right basilar infiltrate though bibasilar atelectasis is favored. CTA chest showed extensive atelectasis. No focal infiltrate to suggest pneumonia. Had low grade temp of 38.2 on 07/03/19. WBC was 9 on admission, increased to 14 (likely due to methylpred gotten on admission) now 6.4. Blood cx positive for CONS Vanco was added to doxycycline I have low suspicion for pneumonia based on available clinical data. However, will continue current regimen and plan to discontinue antibiotics if repeat culture is negative Wean off oxygen Incentive spirometry Bacteremia Gram Positive cocci in Clusters, now reported as CONS in one bottle only from 07/03/19 Repeated 2nd blood cultures yesterday. Will follow up result Continue vancomycin for now until if repeat is negative as this may be contaminant TTE though suboptimal, did not show vegetations Hx Down syndrome Stable Chronic diastolic dysfunction No sign of fluid overload Hypothyroidism Continue Levothyroxine CODE status Full Code Admission and Anticipated Discharge Date Admission Date: July 03, 2019 Subjective Patient seen and examined Patient has no complaints Per RN, there was no events overnight Patient has been taking off his oxygen. Currently on room air. Physical Exam Constitutional: + well hydrated; no acute distress and not ill appearing Respiratory: normal respiratory effort, lungs clear to auscultation Cardiovascular: RRR, no murmur, no edema Gastrointestinal (Abdomen): normal bowel sounds, soft, nontender, no hepatosplenomegaly Musculoskeletal: no cyanosis or clubbing, extremities motor strength 5/5 Neurologic: PERRL, EOMI, accommodation nl, no face palsy, no dysarthria Psychiatric: Orientation: alert Insight: + poor insight Aox1 Results & Data ([facility]) Vital Signs (Past 12 Hours) Vital Signs Temp Pulse Pulse Resp BP Pulse Ox 07/06/19 09:42 91 07/06/19 07:43 36.5 C 60 18 103/54 L 90 07/06/19 07:05 62 18 95 07/06/19 03:59 36.5 C 54 L 18 107/66 93 07/06/19 00:40 64 16 97 07/05/19 23:43 60 07/05/19 23:05 36.4 C L 62 20 97/59 L 95 Laboratory Results Abnormal lab results 07/06/19 07/06/19 Range/Units 03:21 03:21 RBC 4.46 L (4.7-6.1) M/uL MCV 100.7 H (80-100) fL RDW Std Deviation 56.1 H (36.4-46.3) fL RDW Coeff of Soraya 15.1 H (11.5-14.5) % Anion Gap 1.0 L (3-11) Calcium 8.4 L (8.5-10.1) mg/dl
[2019-07-07] MEDS: LEVALBUTEROL 1.25MG/0.5ML NEB INH SCH ×2 (00:47→07:44)
[2019-07-07] MEDS: IPRATROPIUM BROMIDE NEB SOLN 0.02% 2.5 ML VIAL INH SCH ×2 (00:47→07:44)
[2019-07-07] MEDS: LEVOTHYROXINE SODIUM 25 MCG TABLET PO SCH (05:42)
[2019-07-07 08:15] LABS: Hematocrit (blood only) 47.6 % (42-52); Hemoglobin 16.1 g/dL (14.0-18.0); Mean Corpuscular Hemoglobin 33.9 pg (25-34); Mean Corpuscular Hgb Conc 33.8 g/dL (32-36); Mean Corpuscular Volume 100.2 fL (80-100); Mean Platelet Volume 9.3 fL (7.4-10.4); Platelet Count 235 K/uL (130-400); RDW Coefficient of Variation 14.7 % (11.5-14.5); RDW Standard Deviation 54.8 fL (36.4-46.3); Red Blood Count 4.75 M/uL (4.7-6.1); White Blood Count 8.65 K/uL (4.8-10.8)
[2019-07-07] MEDS: ENOXAPARIN INJ 30 MG/0.3 ML SYR SQ SCH (08:23)
[2019-07-07] MEDS: PANTOprazole 40 MG TAB PO SCH (08:23)
[2019-07-07] MEDS: SERTRALINE HCL 50 MG TABLET PO SCH (08:23)
[2019-07-07] MEDS: EUCERIN CR 120 GM JAR EXT SCH (08:23)
[2019-07-07] MEDS: METHYLCELLULOSE POWDER 454 GM JAR PO SCH (08:23)
[2019-07-07] MEDS: MULTIVITAMIN TAB PO SCH (08:23)
[2019-07-07 08:50] LABS: BUN Creatinine Ratio 13.1 (10-20); Calcium 9.2 mg/dl (8.5-10.1); Creatinine Clr Calc Pharmacy 53.6 ml/min; Est GFR (African American) 87.7; Est GFR (Non-African American) 75.7; Potassium 3.9 mmol/L (3.5-5.1)
--- NOTE | 2019-07-07 10:14 | XRay Report ---
XR chest 2V PA/lateral CLINICAL HISTORY: 49 years-old Male presenting with Hypoxia. Reassess initial findings. TECHNIQUE: PA and lateral views of the chest were obtained. COMPARISON: 07/03/2019. FINDINGS: Median sternotomy wires. Cardiac silhouette borderline enlarged. Pulmonary vascular prominence. Bibas ilar opacities right greater than left slightly increased from prior. Underlying right pleural effusi on may be present. No pneumothorax. Degenerative changes of the thoracic spine. Mottled lucencies at the right lung base with gas corresponds to the presence of the large left Bochdalek hernia containin g bowel. IMPRESSION: 1. Bilateral Bochdalek hernias better evaluated on recent CTA chest from 07/03/2019. 2. Mild associated bibasilar atelectasis. 3. Questionable volume overload. ACT 112: Negative or not required by law. Electronically signed by: Cullen Mccarthy M.D. 07/07/2019 10:13 AM
--- NOTE | 2019-07-07 10:14 | Hospitalist Progress Note ---
Date of Service July 07, 2019 Assessment & Plan (1) Acute hypoxemic respiratory failure: Secondary to complicated bronchitis and atelectasis CXR showed Bibasilar opacities. Given the appearance of apparent elevation of the right hemidiaphragm with colonic bowel gas beneath the diaphragm, it is difficult to exclude an underlying right basilar infiltrate though bibasilar atelectasis is favored. CTA chest showed extensive atelectasis. No focal infiltrate to suggest pneumonia. Interval increase in Bochdalek hernias. Had low grade temp of 38.2 on 07/03/19. WBC was 9 on admission, increased to 14 (likely due to methylpred gotten on admission) now 6.4. Blood cx positive for CONS in only one bottle likely contaminant Vanco was initially added to doxycycline Repeat blood cultures negative so far. All antibiotics discontinued Continue incentive spirometry as much as patient can participate Get ambulatory pulse ox Chronic diastolic dysfunction No sign of fluid overload Hypothyroidism Continue Levothyroxine CODE status Full Code Plan to discharge if amb pulseox is neg Admission and Anticipated Discharge Date Admission Date: July 03, 2019 Subjective Patient has no complaints today Patient had been on oxygen intermittently but has been on room air since this AM No event per RN Physical Exam Constitutional: + well hydrated; no acute distress and not ill appearing Eyes: PERRL, conjunctivae normal, anicteric sclerae Respiratory: normal respiratory effort, lungs clear to auscultation Cardiovascular: RRR, no murmur, no edema Gastrointestinal (Abdomen): normal bowel sounds, soft, nontender, no hepatosplenomegaly Musculoskeletal: no cyanosis or clubbing, extremities motor strength 5/5 Neurologic: PERRL, EOMI, accommodation nl, no face palsy, no dysarthria Psychiatric: Orientation: alert Insight: + limited insight Results & Data ([facility]) Vital Signs (Past 12 Hours) Vital Signs Temp Pulse Pulse Resp BP Pulse Ox 07/07/19 08:00 72 07/07/19 07:53 62 18 90 07/07/19 07:40 36.5 C 66 18 104/69 90 07/07/19 05:02 36.4 C L 59 L 17 103/67 90 07/07/19 00:47 69 16 90 07/06/19 23:00 63 07/06/19 22:47 36.4 C L 58 L 18 97/60 L 90 Laboratory Results Abnormal lab results 07/07/19 Range/Units 07:56 MCV 100.2 H (80-100) fL RDW Std Deviation 54.8 H (36.4-46.3) fL RDW Coeff of Soraya 14.7 H (11.5-14.5) %
--- NOTE | 2019-07-07 10:34 | Discharge Summary ---
Date of Service July 07, 2019 Admission HPI Per Admitting Provider History obtained from patient, caregiver, and records. Limited history from patient secondary to hearing/intellectual impairment. 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 Today patient noted by caregivers to have junky cough, congestion, sore throat, fever symptoms at [facility]. Patient denies chest pain. Admits to some S OB. No witnessed aspiration. No abdominal pain symptoms. No known recent sick contacts. O2 sats noted to be 70s on room air at home. Patient brought to the ER for evaluation. Medical History as above Surgical History : Cochlear device implantation, mitral valve reconstruction, ASD repair Family History : Breast cancer Personal/Social history : Non-smoker, no EtOH intake, [facility] resident Admission Exam Per Admitting Provider GENERAL: uncomfortable, hard of hearing, min respiratory distress SKIN: Normal color, warm HEENT: Gerrard palpebral conjunctivae, no ptosis, dry buccal mucosa, O2 mask in place NECK : Supple, short neck, no tenderness CHEST : Expiratory wheezes, bilateral rhonchi , no tenderness HEART : Tachycardic , no obvious murmurs ABDOMEN: Some distention, nontender EXTREMITIES : No LE swelling/tenderness, no other conspicuous deformities noted NEUROLOGIC : hard of hearing, no facial asymmetry, no other gross focality Principal Diagnosis Acute hypoxemic respiratory failure Secondary to bronchitis and atelectasis Discharge Exam Constitutional: + well hydrated; no acute distress and not ill appearing Eyes: PERRL, conjunctivae normal, anicteric sclerae Respiratory: normal respiratory effort, lungs clear to auscultation Cardiovascular: RRR, no murmur, no edema Gastrointestinal (Abdomen): normal bowel sounds, soft, nontender, no hepatosplenomegaly Musculoskeletal: no cyanosis or clubbing, extremities motor strength 5/5 Neurologic: PERRL, EOMI, accommodation nl, no face palsy, no dysarthria Psychiatric: Orientation: alert Insight: + limited insight Discharge Data Allergies Allergy/AdvReac Type Severity Reaction Status Date / Time Bactrim Allergy rash Verified 09/10/12 09:34 sulfamethoxazole Allergy rash Verified 07/03/19 23:12 trimethoprim Allergy rash Verified 07/03/19 23:12 Consultations 07/03/19 22:35 ED Decision to Admit Stat 07/04/19 00:49 Consult Case Management - Discharge Planning Routine Ordered Studies 07/03/19 21:48 CT angio chest PE protocol Stat 1. Allowing for suboptimal image quality, no evidence of pulmonary embolus. 2. Extensive atelectasis. No focal infiltrate to suggest pneumonia. 3. Significant interval increased size of the large right and moderate left Bochdalek hernias. This contains a significant amount of aren't obstructed small large bowel. Hospital Course (1) Acute hypoxemic respiratory failure: Secondary to complicated bronchitis and atelectasis CXR showed Bibasilar opacities. Given the appearance of apparent elevation of the right hemidiaphragm with colonic bowel gas beneath the diaphragm, it is difficult to exclude an underlying right basilar infiltrate though bibasilar atelectasis is favored. CTA chest showed extensive atelectasis. No focal infiltrate to suggest pneumonia. Interval increase in Bochdalek hernias. Had low grade temp of 38.2 on 07/03/19. WBC was 9 on admission, increased to 14 (likely due to methylpred gotten on admission) now 6.4. Blood cx positive for CONS in only one bottle likely contaminant Vanco was initially added to doxycycline Repeat blood cultures negative so far. All antibiotics discontinued Continue incentive spirometry as much as patient can participate Ambulatory pulse ox was negative Chronic diastolic dysfunction No sign of fluid overload Hypothyroidism Continue Levothyroxine CODE status Full Code Total Time Total Time Spent Total Time Spent (In Minutes): 25 Total Time Includes: Examination of the Patient, Discharge Planning and Medication Reconciliation Discharge Plan Discharge Items Patient Disposition: Personal Correction Reason For Visit: Low oxygen Discharge Diagnosis: Acute hypoxemic respiratory failure Secondary to bronchitis and atelectasis Activity: Resume your previous activity Non-emergency contact: Primary Care Provider Call non-emergency contact if: you have any medication questions and your symptoms worsen Follow-up/Referrals: Kosta Tovar, [Primary Care Provider] - 07/10/19 11:05 am (Apt made 07/04/2019@ 16:15. ) Diet: Regular Diet Texture: Dental soft (bite-sized) Addtl Attending Provider Instructions: Mr Spann You were brought to the hospital for low oxygen level and reported cough, congestion, sore throat and fever. You were evaluated and treated for bronchitis. Your symptoms has improved significantly. You required oxygen during your hospital stay. Please continue follow up with your Primary Doctor. It is a pleasure taking care of you. Pending Studies at Discharge: No Stand-Alone Forms: My [facility], Smoking Cessation Skilled Items Patient informed of condition?: Yes DNR: No Discharge Level of Care: Other Communicable Disease: No Discharge Prognosis: Stable Lines: None Urinary Catheter: No Medications and DC Order Prescriptions: New levalbuterol HCl 1.25 mg/0.5 mL solution for nebulization 1.25 mg INH Q8H PRN (Reason: shortness of breath or wheezing) Qty: 30 RF: 0 albuterol sulfate 90 mcg/actuation HFA aerosol inhaler 1 puffs INH Q6H Qty: 6.7 RF: 0 Continued multivitamin Tablet 1 tab PO QAM RF: 0 ketoconazole 2 % Shampoo 1 dose TOPICAL 3XWK RF: 0 levothyroxine [Synthroid] 25 mcg Tablet 25 mcg PO QAM RF: 0 pantoprazole 20 mg Tablet,Delayed Release (Dr/Ec) 20 mg PO QAM RF: 0 clobetasol 0.05 % Solution 2 applic TOPICAL WK RF: 0 sertraline 50 mg Tablet 50 mg PO QAM RF: 0 fluoride (sodium) [PreviDent 5000 Dry Mouth] 1.1 % Gel 1 applic DENTAL HS RF: 0 Eucerin Cream 1 applic TOPICAL 3XWK RF: 0 Biotene Dry Mouth Oral Rinse Mouthwash 1 tbsp PO BID RF: 0 Citrucel Sugar Free Powder 1 ea PO DAILY RF: 0 Discharge Orders: Discharge Order (Routine); Ordered 07/07/19 Ordered By: Tammy Mcguire Admission Data Admit Date/Time: 07/03/19 23:42 Attending Provider: Tammy Mcguire I. Admit Provider: Domenico Wesley Primary Care Provider: Kosta Tovar Other Providers: Domenico Wesley ; Camden Blanco Other Interventions: Discharge Summary Assessment (RN) Last Done: 07/07/19 10:39 DC Date/Time DO NOT enter until pt leaves facility: 07/07/19 16:20
[2019-07-07] MEDS ORDERED: LEVALBUTEROL 1.25MG/0.5ML NEB INH PRN (12:48)
[2019-07-07] MEDS ORDERED: IPRATROPIUM BROMIDE NEB SOLN 0.02% 2.5 ML VIAL INH PRN (12:48)
== END 2019-07-07 16:20 | disposition home or self-care (01) | DRG 202 ==
LOC: ED 20:58 → 2N 23:42 → SUATTDRO 23:42 → 2N 07-04 00:05

== ENCOUNTER 2019-11-16 18:49 | Observation (INO) ==
--- NOTE | 2019-11-16 18:56 | Emergency Department Note ---
Impression & Plan Hypoxia, Vomiting ED Provider Note NAME: DAT ORDONEZ AGE: 49 SEX: M : 1970 ARRIVES VIA: Ambulance INFORMANT: Patient, ED PROVIDER(S): Shady Hutchinson MD Chief Complaint: Vomiting HPI: History is limited secondary to the patient's intellectual disability. History is gathered from 1 of the staff [facility]. Putting the patient was eating dinner and subsequently had several episodes of vomiting. Nonbloody. Patient is not on blood thinners. Patient reportedly tried to drink some water and subsequently vomited thereafter. They referred him here for further evaluation and treatment. Patient has been getting his temperature checked which has not been elevated. No current covered cases at strep refill at this time. Patient has been compliant with his medications per staff. No recent ch anges in medications or recent travel. No known sick contacts. ROS: Unable to obtain secondary to patient's intellectual disability. Past medical history: See below Surgical history: See below Social history: See below Physical Exam: GENERAL: NAD, non-toxic. Holding small sticks in his hands. Wearing a mask. Down syndrome facies present. EYE EXAM: Normal conjunctiva. PERRL, no anisocoria and EOM's grossly intact w/o pain. OROPHARYNX: Moist mucus membranes. Grossly normal dentition. No exudate, posterior pharynx is clear, no tonsillar/uvular deviation or swelling. No cervical adenopathy, no submental, submandibular, or sublingual swelling. NECK: Supple, no nuchal rigidity, no adenopathy, non-tender. No signs of meningismus. FROM of the neck with good chin to chest and neck extension. No stridor. LUNGS: Clear to auscultation. Normal chest wall mechanics. HEART: NSR, no MRG. ABDOMEN: Abdomen soft, non-tender, normo-active bowel sounds, no masses, no rebound or guarding. BACK: No CVA TTP. SKIN: No rashes and no bruising. UPPER EXTREMITIES: Upper extremities are grossly normal. LOWER EXTREMITIES: Grossly normal, no edema. NEURO EXAM: Awake alert, follows basic commands, no facial droop, moves all 4 extremities. Differential diagnoses: Cardiac ischemia, aortic dissection, pulmonary embolism, pneumothorax, pneumonia, pericarditis, myocarditis, esophageal rupture, GERD, c holecystitis, pancreatitis, musculoskeletal, as well as other pathologies. Course: Patient was seen and evaluated the bedside. Full history physical exam was performed. EKG: Location: Vomiting Imaging Studies: Radiology results as stated below per my review in the radiologist's interpretation: Cardiac monitoring: An order was placed for continuous cardiac monitoring. The monitor shows a rate of with patient rhythm. MDM: Patient was seen due to concern for nausea vomiting. There was report of possible chest and/or throat pain. Non-stridulous clear posterior pharynx with no sign of any adenopathy or sublingual or submental swelling. Patient did have x-rays completed along with blood work was given IV fluids and nausea medications. Patient's blood work reassuring with a normal white count H&H and platelet count. Kidney function shows mild elevation in BUN. Patient otherwise has unremarkable labs. Patient chest x-ray is clear. The patient when he was asleep did desat into the mid 80s. Patient certainly may have an element of ADAIR but given the possible concern for aspiration I did speak with the on-call hospitalist. Patient was ordered clindamycin and subsequently mated to the medicine service by Dr. Zaman with [facility]. Past Med/Surg History Medical History Alzheimers disease Diaphragmatic hernia Down's syndrome Hearing loss associated with syndrome of both ears History of scarlet fever as a child Hypothyroidism (acquired) Juvenile idiopathic scoliosis of thoracolumbar region Moderate intellectual disabilities Psoriasis Seborrheic dermatitis Wklgn-Gnzyajcwv-Jpdop (WPW) syndrome Surgical History History of cardiac cath 10/2001--no stents History of cochlear implant right History of mitral valve repair 11/2001--closure of atrial septal defect and mitral valve repair [place] [facility] [place] Family History Other Family history not known due to adoption Social History Preferred Language: Barbadian Communication Ability: Impaired Early Morning Babysitter Required: No Beliefs That Will Affect Care: None Current Living Situation: Personal Care Facility Current Living Situation Comment: Lives at [facility] Feels Safe at Home: Yes Smoking Status: Never smoker Hx Alcohol Use: No Hx Substance Use: No Allergies Allergies Allergy/AdvReac Type Severity Reaction Status Date / Time Bactrim Allergy rash Verified 09/10/12 09:34 sulfamethoxazole Allergy rash Verified 11/16/19 20:36 trimethoprim Allergy rash Verified 11/16/19 20:36 Home Meds Home Medications Medication Instructions Recorded Confirmed Biotene Dry Mouth Oral Rinse 1 tbsp PO BID 09/22/18 11/16/19 Eucerin 1 applic TOPICAL 3XWK 09/22/18 11/16/19 clobetasol 2 applic TOPICAL WK 09/22/18 11/16/19 fluoride (sodium) [PreviDent 5000 1 applic DENTAL HS 09/22/18 11/16/19 Dry Mouth] ketoconazole 1 dose TOPICAL 3XWK 09/22/18 11/16/19 levothyroxine [Synthroid] 25 mcg PO QAM 09/22/18 11/16/19 multivitamin 1 tab PO QAM 09/22/18 11/16/19 pantoprazole 20 mg PO QAM 09/22/18 11/16/19 sertraline 50 mg PO QAM 09/22/18 11/16/19 Citrucel Sugar Free 1 ea PO DAILY 07/03/19 11/16/19 Results & Data (ED) Vital Signs Vital Signs - 24 hr 11/16/19 19:04 11/16/19 19:47 11/16/19 19:48 Temperature 37.2 C Temperature Source Oral Pulse Rate 65 61 60 Pulse Rate from SpO2 Sensor 61 61 Pulse Rhythm Regular Pulse Strength Normal Respiratory Rate 20 18 12 Respiratory Effort / Characteristics Non-Labored Respiratory Depth Normal Respiratory Pattern Regular Blood Pressure 113/60 108/56 L Blood Pressure Mean 77 64 Blood Pressure Position Sitting Pulse Oximetry 98 93 93 Oxygen Delivery Method Room Air Oxygen Flow Rate Sepsis Recent Fever Within 48 Hours No Sepsis Action Taken by Nursing No Action Required 11/16/19 19:49 11/16/19 19:54 11/16/19 19:55 Temperature Temperature Source Pulse Rate Pulse Rate from SpO2 Sensor Pulse Rhythm Pulse Strength Respiratory Rate Respiratory Effort / Characteristics Respiratory Depth Respiratory Pattern Blood Pressure Blood Pressure Mean Blood Pressure Position Pulse Oximetry 92 84 L 97 Oxygen Delivery Method Room Air Room Air Nasal Cannula Oxygen Flow Rate 2 Sepsis Recent Fever Within 48 Hours Sepsis Action Taken by Nursing 11/16/19 20:00 11/16/19 20:01 Temperature Temperature Source Pulse Rate 55 L 56 L Pulse Rate from SpO2 Sensor 55 L 56 L Pulse Rhythm Pulse Strength Respiratory Rate 16 16 Respiratory Effort / Characteristics Respiratory Depth Respiratory Pattern Blood Pressure 116/62 Blood Pressure Mean 87 Blood Pressure Position Pulse Oximetry 98 99 Oxygen Delivery Method Oxygen Flow Rate Sepsis Recent Fever Within 48 Hours Sepsis Action Taken by [facility] Medications Current Medication List: was personally reviewed by me Laboratory Data Attestation: I reviewed the patient's lab results. Result diagrams: 11/16/19 19:40 11/16/19 19:40 Lab Results 11/16/19 11/16/19 11/16/19 Range/Units 19:40 19:40 19:40 WBC 5.85 (4.8-10.8) K/uL RBC 4.92 (4.7-6.1) M/uL Hgb 16.4 (14.0-18.0) g/dL Hct 48.4 (42-52) % MCV 98.4 (80-100) fL MCH 33.3 (25-34) pg MCHC 33.9 (32-36) g/dL RDW Std Deviation 51.4 H (36.4-46.3) fL RDW Coeff of Soraya 14.3 (11.5-14.5) % Plt Count 248 (130-400) K/uL MPV 9.1 (7.4-10.4) fL Immature Gran % (Auto) 0.2 % Neut % (Auto) 53.7 % Lymph % (Auto) 34.2 % [place] % (Auto) 10.9 % Eos % (Auto) 0.5 % Baso % (Auto) 0.5 % Neut # (Auto) 3.14 (1.4-6.5) K/uL Lymph # (Auto) 2.00 (1.2-3.4) K/uL [place] # (Auto) 0.64 H (0.11-0.59) K/uL Eos # (Auto) 0.03 (0-0.5) K/uL Baso # (Auto) 0.03 (0-0.2) K/uL Immature Gran # (Auto) 0.01 (0.00-0.02) K/uL PT 11.4 (9.0-12.0) Seconds INR 1.1 (0.9-1.1) APTT 29.6 (21.0-31.0) Seconds PTT Ratio 1.1 Sodium 140 (136-145) mmol/L Potassium 4.0 (3.5-5.1) mmol/L Chloride 106 (98-107) mmol/L Carbon Dioxide 30 (21-32) mmol/L Anion Gap 4.0 (3-11) BUN 19 H (7-18) mg/dl Creatinine 1.15 (0.6-1.4) mg/dl Est Cr Clr Drug Dosing 53.7 ml/min Est GFR ( Amer) 84.9 Est GFR (Non-Af Amer) 73.3 BUN/Creatinine Ratio 16.1 (10-20) Glucose 96 (70-99) mg/dl Calcium 9.2 (8.5-10.1) mg/dl Magnesium 2.2 (1.8-2.4) mg/dl Total Bilirubin 0.6 (0.2-1) mg/dl AST 18 (15-37) U/L ALT 20 (12-78) U/L Alkaline Phosphatase 49 (45-117) U/L Troponin I < 0.015 (0-0.045) ng/ml Total Protein 7.3 (6.4-8.2) gm/dl Albumin 3.7 (3.4-5.0) gm/dl Globulin 3.6 (2.5-4.0) gm/dl Albumin/Globulin Ratio 1.0 (0.9-2) Lipase 113 (73-393) U/L Administered Medications Discontinued Medications Ondansetron HCl (Zofran) 4 mg IV NOW STA Stop: 11/16/19 19:04 Last Admin: 11/16/19 19:51 Dose: 4 mg Documented by: [id number] Discharge Plan Visit Data Chief Complaint: Vomiting Stated Complaint: PAIN THROAT & UPPER CHEST ED Provider: Shady Hutchinson Discharge Problem: Hypoxia, Vomiting Forms Stand Alone Forms: My [facility] [employer] Prescriptions Prescriptions: No Action multivitamin Tablet 1 tab PO QAM RF: 0 ketoconazole 2 % Shampoo 1 dose TOPICAL 3XWK RF: 0 levothyroxine [Synthroid] 25 mcg Tablet 25 mcg PO QAM RF: 0 pantoprazole 20 mg Tablet,Delayed Release (Dr/Ec) 20 mg PO QAM RF: 0 clobetasol 0.05 % Solution 2 applic TOPICAL WK RF: 0 sertraline 50 mg Tablet 50 mg PO QAM RF: 0 fluoride (sodium) [PreviDent 5000 Dry Mouth] 1.1 % Gel 1 applic DENTAL HS RF: 0 Eucerin Cream 1 applic TOPICAL 3XWK RF: 0 Biotene Dry Mouth Oral Rinse Mouthwash 1 tbsp PO BID RF: 0 Citrucel Sugar Free Powder 1 ea PO DAILY RF: 0 Discharge Problem: Vomiting Qualifiers: Vomiting type: unspecified Vomiting Intractability: non-intractable Nausea presence: unspecified Qualified Code(s): R11.10 - Vomiting, unspecified
[2019-11-16] MEDS ORDERED: ONDANSETRON INJ 2 MG/ML 2 ML VIAL IV STA (19:03)
--- NOTE | 2019-11-16 19:44 | XRay Report ---
XR chest 1V portable CLINICAL HISTORY: vomiting COMPARISON STUDY: Chest CT 07/03/2019. Chest radiograph July 07, 2019. FINDINGS: Median sternotomy wires are noted. Cardiomediastinal silhouette is stable. There is no evid ence for pulmonary edema or pneumonia. Mild bibasilar opacities favor atelectasis. Bilateral Bochdale k hernias are unchanged. These are better depicted on prior CT. IMPRESSION: No acute cardiopulmonary findings. No change in appearance of the chest. ACT 112: Negative or not required by law. Electronically signed by: Luís Samaniego M.D. 11/16/2019 7:43 PM
--- NOTE | 2019-11-16 19:48 | XRay Report ---
KUB CLINICAL HISTORY: vomiting COMPARISON STUDY: CT of the abdomen and pelvis September 10, 2012. FINDINGS: Bilateral Bochdalek hernias are better depicted on prior CT. Levoscoliosis of the lumbar sp ine is noted. The bowel gas pattern is normal. IMPRESSION: No evidence for a bowel obstruction. ACT 112: Negative or not required by law. Electronically signed by: Luís Samaniego M.D. 11/16/2019 7:46 PM
[2019-11-16 19:50] LABS: Basophils # (auto) 0.03 K/uL (0-0.2); Basophils % (auto) 0.5 %; Eosinophils # (auto) 0.03 K/uL (0-0.5); Eosinophils % (auto) 0.5 %; Hematocrit (blood only) 48.4 % (42-52); Hemoglobin 16.4 g/dL (14.0-18.0); Immature Granulocytes # (auto) 0.01 K/uL (0.00-0.02); Immature Granulocytes % (auto) 0.2 %; Lymphocytes % (auto) 34.2 %; Mean Corpuscular Hemoglobin 33.3 pg (25-34); Mean Corpuscular Hgb Conc 33.9 g/dL (32-36); Mean Corpuscular Volume 98.4 fL (80-100); Mean Platelet Volume 9.1 fL (7.4-10.4); Monocytes # (auto) 0.64 K/uL (0.11-0.59); Monocytes % (auto) 10.9 %; Neutrophils # (auto) 3.14 K/uL (1.4-6.5); Neutrophils % (auto) 53.7 %; Platelet Count 248 K/uL (130-400); RDW Coefficient of Variation 14.3 % (11.5-14.5); RDW Standard Deviation 51.4 fL (36.4-46.3); Red Blood Count 4.92 M/uL (4.7-6.1); White Blood Count 5.85 K/uL (4.8-10.8)
[2019-11-16 20:01] LABS: INR 1.1 (0.9-1.1); Partial Thromboplastin Ratio 1.1; Partial Thromboplastin Time 29.6 Seconds (21.0-31.0); Prothrombin Time 11.4 Seconds (9.0-12.0)
[2019-11-16 20:09] LABS: Alanine Aminotransferase 20 U/L (12-78); Albumin Level 3.7 gm/dl (3.4-5.0); Aspartate Aminotransferase 18 U/L (15-37); BUN Creatinine Ratio 16.1 (10-20); Blood Urea Nitrogen 19 mg/dl (7-18); Calcium 9.2 mg/dl (8.5-10.1); Carbon Dioxide 30 mmol/L (21-32); Chloride 106 mmol/L (98-107); Creatinine Clr Calc Pharmacy 53.7 ml/min; Est GFR (African American) 84.9; Est GFR (Non-African American) 73.3; Glucose 96 mg/dl (70-99); Lipase 113 U/L (73-393); Magnesium 2.2 mg/dl (1.8-2.4); Sodium 140 mmol/L (136-145)
[2019-11-16 20:14] LABS: Alkaline Phosphatase 49 U/L (45-117); Bilirubin,Total 0.6 mg/dl (0.2-1); Globulin 3.6 gm/dl (2.5-4.0); Total Protein 7.3 gm/dl (6.4-8.2); Troponin I < 0.015 ng/ml (0-0.045)
[2019-11-16] MEDS ORDERED: CLINDAMYCIN 600 MG in DEXTROSE 5% 50 ML IV ONE (20:58)
--- NOTE | 2019-11-16 21:24 | History & Physical Report ---
Date of Service November 16, 2019 Assessment & Plan (1) Vomiting: This is a 49-year-old male with PMH of intellectual disability, WPW syndrome, chronic diastolic dysfunction, history of congenital heart disease, hypothyroidism, GERD and mood disorder who presents with multiple vomiting episodes prior to arrival. -Afebrile, no leukocytosis, electrolytes within normal limits, lipase within normal limits KUB without evidence of bowel obstruction -Vomiting occurred after eating but no evidence of aspiration on chest x-ray -Need to evaluate for infectious causes. Obtaining blood cultures, lactic acid, CT abdomen/pelvis, UA. COVID-19 screen ordered -Isolation precautions until COVID-PCR results. Patient does reside at halfway but no known exposures -Clear liquid diet this evening. Continue PPI -Speech evaluation (2) Acute respiratory failure with hypoxia: Initially hypoxic 84% on room air. Now saturating 99% on 2 L nasal cannula -Caregiver observed that hypoxia occurs when patient nods off and sleeps. Monitor and continue supplemental O2 as needed (3) Mood disorder: Continue SSRI (4) Hypothyroidism (acquired): Continue levothyroxine DVT Ppx: SQ Lovenox Code status: FULL PCP: Yvonne Tovar Dispo: Admitted to [facility]. Discharge planning ordered. Patient seen in collaboration with Dr. Zaman. Please see addendum. History of Present Illness Chief Complaint: vomiting, Primary Care Provider: Kosta Tovar, This is a 49-year-old male with PMH of intellectual disability, WPW syndrome, chronic diastolic dysfunction, history of congenital heart disease, hypothyroidism, GERD and mood disorder who presents with multiple vomiting episodes prior to arrival. Patient resides at the [facility] halfway. History is provided by staff member at bedside. Patient was eating dinner and subsequently had several episodes of vomiting. Patient has had temperature checked daily as part of COVID precaution and has remained afebrile. Did not vomit any blood. No recent sick contacts in the halfway. Caregiver states that patient eats normally without issue. No history of aspiration, choking episodes. Was initially hypoxic at 84% on room air upon arrival in ED. Now saturating 99% on 2 L nasal cannula. No fever or chills. Denies any pain. Unable to obtain remainder of ROS due to intellectual disability and patient is very hard of hearing. Allergies Allergy/AdvReac Type Severity Reaction Status Date / Time Bactrim Allergy rash Verified 09/10/12 09:34 sulfamethoxazole Allergy rash Verified 11/16/19 20:36 trimethoprim Allergy rash Verified 11/16/19 20:36 Home Medications Home Medications Medication Instructions Recorded Confirmed Type Biotene Dry Mouth Oral Rinse 1 tbsp PO BID 09/22/18 11/16/19 History Eucerin 1 applic TOPICAL 3XWK 09/22/18 11/16/19 History clobetasol 2 applic TOPICAL WK 09/22/18 11/16/19 History fluoride (sodium) [PreviDent 5000 1 applic DENTAL HS 09/22/18 11/16/19 History Dry Mouth] ketoconazole 1 dose TOPICAL 3XWK 09/22/18 11/16/19 History levothyroxine [Synthroid] 25 mcg PO QAM 09/22/18 11/16/19 History multivitamin 1 tab PO QAM 09/22/18 11/16/19 History pantoprazole 20 mg PO QAM 09/22/18 11/16/19 History sertraline 50 mg PO QAM 09/22/18 11/16/19 History Citrucel Sugar Free 1 ea PO DAILY 07/03/19 11/16/19 History Past Med/Surg History Medical History (Updated 11/16/19 @ 21:48 by Sybil Reyes PA-C) Alzheimers disease Diaphragmatic hernia Down's syndrome Hearing loss associated with syndrome of both ears History of scarlet fever as a child Hypothyroidism (acquired) Juvenile idiopathic scoliosis of thoracolumbar region Moderate intellectual disabilities Mood disorder Psoriasis Seborrheic dermatitis Vfjts-Tvaujvlqk-Pmtqv (WPW) syndrome Surgical History History of cardiac cath 10/2001--no stents History of cochlear implant right History of mitral valve repair 11/2001--closure of atrial septal defect and mitral valve [place] [facility] [place] Family History Other Family history not known due to adoption Social History Preferred Language: Bengali Communication Ability: Impaired 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 Consultant Required: No Beliefs That Will Affect Care: None Current Living Situation: Personal Care Facility Current Living Situation Comment: Lives at [facility] Feels Safe at Home: Yes Smoking Status: Never smoker Hx Alcohol Use: No Hx Substance Use: No Review of Systems Review of Systems: Unobtainable due to cognitive status Physical Exam Physical Exam: General Appearance: vitals as above, NAD, sitting up in bed, pleasant, able to nod yes/no Head: normocephalic, atraumatic Eyes: normal inspection, PERRL, conjunctivae normal, anicteric sclerae ENT: hard of hearing, external ear and nose normal, wearing mask Neck: trachea midline, no thyromegaly, normal visual inspection Respiratory: normal respiratory effort, lungs clear to auscultation, no wheeze, rales, rhonchi. Normal insp/exp effort, no accessory muscle use Cardiovascular: regular rate, rhythm, no murmur appreciated, normal peripheral pulses Chest: normal inspection of chest Abdomen/GI: normal bowel sounds, soft, nontender, no hepatosplenomegaly Extremities/Musculoskeletal: no cyanosis or clubbing, extremities motor strength 5/5 Neurologic: PERRL, EOMI, accommodation nl, CN's II-XI intact bilaterally and moves all extremities Skin: no rashes, normal color, warm/dry Results & Data Results & Data ([facility]) Vital Signs (Past 12 Hours) Vital Signs Temp Pulse Resp BP Pulse Ox 11/16/19 20:01 56 L 16 99 11/16/19 20:00 55 L 16 116/62 98 11/16/19 19:55 97 11/16/19 19:54 84 L 11/16/19 19:49 92 11/16/19 19:48 60 12 93 11/16/19 19:47 61 18 108/56 L 93 11/16/19 19:04 37.2 C 65 20 113/60 98 Laboratory Results Short CBC 11/16/19 Range/Units 19:40 WBC 5.85 (4.8-10.8) K/uL Hgb 16.4 (14.0-18.0) g/dL Hct 48.4 (42-52) % Plt Count 248 (130-400) K/uL BMP 11/16/19 19:40 Sodium 140 Potassium 4.0 Chloride 106 Carbon Dioxide 30 BUN 19 H Creatinine 1.15 Glucose 96 Calcium 9.2 Cardiac Enzymes 11/16/19 Range/Units 19:40 Troponin I < 0.015 (0-0.045) ng/ml Liver Function 11/16/19 Range/Units 19:40 Total Bilirubin 0.6 (0.2-1) mg/dl AST 18 (15-37) U/L ALT 20 (12-78) U/L Alkaline Phosphatase 49 (45-117) U/L Albumin 3.7 (3.4-5.0) gm/dl Diagnostic Findings CXR: IMPRESSION: No acute cardiopulmonary findings. No change in appearance of the chest. KUB: IMPRESSION: No evidence for a bowel obstruction. Code Status & VTE Plan VTE Prophylaxis Plan VTE Prophylaxis will be ordered: Yes Supervising Physician Co-Signing Physician Notes I, Dr. Jimmy Zaman, have seen and examined the patient Michael Spann with physician assistant director of public works and would like to comment that on Physical Exam General: no acute distress Ears: hearing aides Nose: at time of exam the supplementary oxygen at 2 liters/min but the nasal cannula prongs were out of position to the face but patient saturating above 90% Lung: clear to auscultation, no wheezing Chest/Cardiac: bradycardia Abdomen: soft, nontender Neuro/Extremities: moves the extremities ASSESSMENT AND PLAN -This is 49 year old male with Down syndrome, Bochdalek hernia, Olpsi-Rznmgizfm-Oavjp (WPW) syndrome chronic diastolic dysfunction as per records, hx congenital heart disease (AV canal defect status post ASD closure with mitral valve repair), hearing loss status post cochlear implantation. -patient is a resident of [facility] and had 4 episodes of vomiting. No fevers as per regional transportation manager at bedside. ED physician reported hypoxia during ED evaluation with oxygen saturating as normal with nasal cannula 2 liters/min. the regional transportation manager reports that patient was sleeping during the time, the hypoxia was noted and denies any prior known diagnosis for sleep apnea. Emergency physician requested admission for further workup and wished to start Iv antibiotics in case of aspiration pneumonia or aspiration pneumonitis developing. The CXR or KUB abdomen with no acute findings. Normal serum lipase -given that patient from [facility] and has multiple congenital deficits, will screen for COVID-19, continue empiric respiratory antibiotics as IV clindamycin, dysphagia screen, if passes give liquid diet, formal speech and swallow evaluation, CT ABDOMEN with IV contrast, give IV fluids, send urine analysis, monitor on telemetry and titrate down supplementary oxygen -agree with other assessment and plans as per physician assistant director of public works -My colleague Dr. Woods will be taking over the care of the patient as hospitalist starting on 11/17/2019 (1) Vomiting Nausea presence: unspecified Vomiting Intractability: non-intractable Vomiting type: unspecified Qualified Code(s): R11.10 - Vomiting, unspecified
[2019-11-17] MEDS ORDERED: POLYETHYLENE (MIRALAX) 17 GM PACK PO PRN (00:23)
[2019-11-17] MEDS ORDERED: ACETAMINOPHEN 325 MG TAB PO PRN (00:23)
[2019-11-17] MEDS ORDERED: SODIUM CHLORIDE 0.9% 1000ML 1,000 ML IV SCH (00:23)
[2019-11-17 01:23] LABS: Appearance Urine Clear (Clear); Bilirubin Urine Negative (Negative); Blood Urine Negative (Negative); Color Urine Yellow; Glucose Urine UA Negative (Negative); Ketones Urine Negative (Negative); Leukocyte Esterase Urine Negative (Negative); Nitrite Urine Negative (Negative); Protein Urine Negative (Negative); Specific Gravity Urine 1.015 (1.000-1.030); Urobilinogen Urine Negative (Negative)
[2019-11-17] MEDS: LEVOTHYROXINE SODIUM 25 MCG TABLET PO SCH (06:15)
[2019-11-17 08:26] LABS: Hematocrit (blood only) 46.3 % (42-52); Hemoglobin 15.6 g/dL (14.0-18.0); Mean Corpuscular Hemoglobin 33.8 pg (25-34); Mean Corpuscular Hgb Conc 33.7 g/dL (32-36); Mean Corpuscular Volume 100.2 fL (80-100); Mean Platelet Volume 9.5 fL (7.4-10.4); Platelet Count 248 K/uL (130-400); RDW Coefficient of Variation 14.4 % (11.5-14.5); RDW Standard Deviation 52.5 fL (36.4-46.3); Red Blood Count 4.62 M/uL (4.7-6.1); White Blood Count 8.09 K/uL (4.8-10.8)
[2019-11-17] MEDS: METHYLCELLULOSE POWDER 454 GM JAR PO SCH (08:27)
[2019-11-17] MEDS: PANTOprazole 40 MG TAB PO SCH (08:27)
[2019-11-17] MEDS: SERTRALINE HCL 50 MG TABLET PO SCH (08:27)
[2019-11-17] MEDS: MULTIVITAMIN TAB PO SCH (08:27)
[2019-11-17] MEDS: ENOXAPARIN INJ 40 MG/0.4 ML SYR SQ SCH (08:28)
[2019-11-17 08:48] LABS: Calcium 8.6 mg/dl (8.5-10.1); Creatinine Clr Calc Pharmacy 51.1 ml/min; Est GFR (African American) 79.9; Est GFR (Non-African American) 68.9; Potassium 4.5 mmol/L (3.5-5.1)
[2019-11-17] MEDS ORDERED: [UNRECOGNIZED DRUG - OTHER] PO SCH (09:00)
[2019-11-17] MEDS ORDERED: IOVERSOL 100ml IV PRN (09:19)
--- NOTE | 2019-11-17 09:38 | CT Scan Report ---
CT abd pelvis IV con only CT DOSE: 385.86 mGy.cm HISTORY: Pain abdominal pain TECHNIQUE: Multiaxial CT images of the abdomen and pelvis were performed following the use of intrave nous contrast. A dose lowering technique was utilized adhering to the principles of ALARA. COMPARISON STUDY: 09/10/2012 FINDINGS: Right subdiaphragmatic hernia contains several bowel loops. There is a nonobstructive findi ng is unchanged from the prior exam. Right renal hydronephrosis possibly secondary by history to a UPJ defect. This is mildly improved. Left kidney is negative for hydronephrosis. Nonobstructive bowel pattern. Slight bladder wall thickening. IMPRESSION: 1. Chronic and congenital change. 2. No acute process in the abdomen or pelvis. 3. No major change from the prior exam. ACT 112: Negative or not required by law. The above report was generated using voice recognition software. It may contain grammatical, syntax or spelling errors. Electronically signed by: Cody Anaya M.D. 11/17/2019 9:36 AM
[2019-11-17] MEDS: CLINDAMYCIN 600 MG in DEXTROSE 5% 50 ML IV SCH ×2 (09:56→17:26)
--- NOTE | 2019-11-17 15:56 | Electrocardiogram Report ---
Test Reason : Blood Pressure : / mmHG Vent. Rate : 060 BPM Atrial Rate : 060 BPM P-R Int : 160 ms QRS Dur : 084 ms QT Int : 410 ms P-R-T Axes : 052 -20 029 degrees QTc Int : 410 ms Normal sinus rhythm Normal ECG When compared with ECG of 03-JUL-2019 21:07, Vent. rate has decreased BY 38 BPM Confirmed by Pavan Everett ([id number]) on 11/17/2019 3:56:15 PM Referred By: REFERRED SELF Confirmed By:Pavan Everett
--- NOTE | 2019-11-17 16:13 | Hospitalist Progress Note ---
Date of Service November 17, 2019 Assessment & Plan (1) Aspiration pneumonitis: (2) Hypoxic episode: Acute hypoxic respiratory failure This is a 49-year-old male with PMH of intellectual disability, WPW syndrome, chronic diastolic dysfunction, history of congenital heart disease, hypothyroidism, GERD and mood disorder who presents with multiple vomiting episodes prior to arrival, found to be hypoxic 84%. X-ray:IMPRESSION: No acute cardiopulmonary findings. No change in appearance of the chest. Remains afebrile No leukocytosis Lactic acid negative Blood cultures pending Speech therapy evaluation performed: No aspiration noted Recommendations of speech therapist: #1 soft cut diet #2 assistance with intake as needed-encouragement to feed himself 3. Aspiration precautions as outlined Alternate solids and liquids Supervised meals Alert and upright Single bites/small sips/slow rate Weaned off oxygen today We will order nocturnal pulse oximetry Clindamycin IV every 8 hours for now to complete 3 days therapy for possible aspiration pneumonitis (3) Vomiting: So far infectious work-up negative, continue to monitor and follow-up cultures Bochdalek hernia seems to be stable per imaging Speech therapy recommendations noted above (4) Mood disorder: Continue SSRI (5) Hypothyroidism (acquired): Continue levothyroxine DVT Ppx: SQ Lovenox Code status: FULL PCP: Yvonne Tovar Dispo: Anticipate discharge to assisted tomorrow when medically stable Admission and Anticipated Discharge Date Admission Date: November 16, 2019 Subjective Follow-up for hypoxia, possible aspiration Seen sitting up in bedside chair, awake and alert On 2 L of oxygen via nasal cannula, not in distress, comfortable Pleasant, smiling Patient nods and shakes his head to answer questions Feels fine overall No shortness of breath, cough, abdominal pain, chest pain Full review of systems difficult to assess due to patient's baseline cognitive function No other issues as per technical staff assistant Review of Systems Review of Systems: All systems reviewed & are unremarkable except as noted in HPI & below Physical Exam Physical Exam: General-awake alert, follows all commands, calm and cooperative, not in distress, speaks in sentences with no effort or accessory muscle use Eyes- anicteric Neck- no JVD Lungs- clear breath sounds bilaterally, no rales/wheezes Heart- normal rate, regular rhythm; no murmurs Abdomen- normal bowel sounds, nondistended, soft, nontender Extremities- no pretibial edema, no calf tenderness Neuro- alert, alert; no gross focal neurologic deficits Skin- warm & dry Results & Data Results & Data ([facility]) Vital Signs (Past 12 Hours) Vital Signs Temp Pulse Pulse Resp BP Pulse Ox 11/17/19 15:22 36.8 C 83 18 112/61 97 11/17/19 07:31 65 11/17/19 07:20 36.7 C 55 L 16 104/66 97 Laboratory Results Laboratory Results - last 24 hr 11/16/19 11/16/19 11/16/19 19:40 19:40 19:40 WBC 5.85 RBC 4.92 Hgb 16.4 Hct 48.4 MCV 98.4 MCH 33.3 MCHC 33.9 RDW Std Deviation 51.4 H RDW Coeff of Soraya 14.3 Plt Count 248 MPV 9.1 Immature Gran % (Auto) 0.2 Neut % (Auto) 53.7 Lymph % (Auto) 34.2 Haines % (Auto) 10.9 Eos % (Auto) 0.5 Baso % (Auto) 0.5 Neut # (Auto) 3.14 Lymph # (Auto) 2.00 Haines # (Auto) 0.64 H Eos # (Auto) 0.03 Baso # (Auto) 0.03 Immature Gran # (Auto) 0.01 PT 11.4 INR 1.1 APTT 29.6 PTT Ratio 1.1 Sodium 140 Potassium 4.0 Chloride 106 Carbon Dioxide 30 Anion Gap 4.0 BUN 19 H Creatinine 1.15 Est Cr Clr Drug Dosing 53.7 Est GFR ( Amer) 84.9 Est GFR (Non-Af Amer) 73.3 BUN/Creatinine Ratio 16.1 Glucose 96 Lactate Calcium 9.2 Magnesium 2.2 Total Bilirubin 0.6 AST 18 ALT 20 Alkaline Phosphatase 49 Troponin I < 0.015 Total Protein 7.3 Albumin 3.7 Globulin 3.6 Albumin/Globulin Ratio 1.0 Lipase 113 Urine Color Urine Appearance Urine pH Ur Specific [place] Urine Protein Urine Glucose (UA) Urine Ketones Urine Blood Urine Nitrite Urine Bilirubin Urine Urobilinogen Ur Leukocyte Esterase COVID-19 PCR SARS-CoV-2 RNA (RT-PCR) 11/16/19 11/16/19 11/16/19 20:52 21:35 21:35 WBC RBC Hgb Hct MCV MCH MCHC RDW Std Deviation RDW Coeff of Soraya Plt Count MPV Immature Gran % (Auto) Neut % (Auto) Lymph % (Auto) Haines % (Auto) Eos % (Auto) Baso % (Auto) Neut # (Auto) Lymph # (Auto) Haines # (Auto) Eos # (Auto) Baso # (Auto) Immature Gran # (Auto) PT INR APTT PTT Ratio Sodium Potassium Chloride Carbon Dioxide Anion Gap BUN Creatinine Est Cr Clr Drug Dosing Est GFR ( Amer) Est GFR (Non-Af Amer) BUN/Creatinine Ratio Glucose Lactate Calcium Magnesium Total Bilirubin AST ALT Alkaline Phosphatase Troponin I Total Protein Albumin Globulin Albumin/Globulin Ratio Lipase Urine Color Yellow Urine Appearance Clear Urine pH 5.0 Ur Specific [place] 1.015 Urine Protein Negative Urine Glucose (UA) Negative Urine Ketones Negative Urine Blood Negative Urine Nitrite Negative Urine Bilirubin Negative Urine Urobilinogen Negative Ur Leukocyte Esterase Negative COVID-19 PCR NEGATIVE SARS-CoV-2 RNA (RT-PCR) Cancelled 11/16/19 11/17/19 11/17/19 22:54 07:57 07:57 WBC 8.09 RBC 4.62 L Hgb 15.6 Hct 46.3 MCV 100.2 H MCH 33.8 MCHC 33.7 RDW Std Deviation 52.5 H RDW Coeff of Soraya 14.4 Plt Count 248 MPV 9.5 Immature Gran % (Auto) Neut % (Auto) Lymph % (Auto) Haines % (Auto) Eos % (Auto) Baso % (Auto) Neut # (Auto) Lymph # (Auto) Haines # (Auto) Eos # (Auto) Baso # (Auto) Immature Gran # (Auto) PT INR APTT PTT Ratio Sodium 139 Potassium 4.5 Chloride 106 Carbon Dioxide 28 Anion Gap 5.0 BUN 16 Creatinine 1.21 Est Cr Clr Drug Dosing 51.1 Est GFR ( Amer) 79.9 Est GFR (Non-Af Amer) 68.9 BUN/Creatinine Ratio 13.0 Glucose 93 Lactate 1.0 Calcium 8.6 Magnesium Total Bilirubin AST ALT Alkaline Phosphatase Troponin I Total Protein Albumin Globulin Albumin/Globulin Ratio Lipase Urine Color Urine Appearance Urine pH Ur Specific [place] Urine Protein Urine Glucose (UA) Urine Ketones Urine Blood Urine Nitrite Urine Bilirubin Urine Urobilinogen Ur Leukocyte Esterase COVID-19 PCR SARS-CoV-2 RNA (RT-PCR) (1) Vomiting Nausea presence: unspecified Vomiting Intractability: non-intractable Vomiting type: unspecified Qualified Code(s): R11.10 - Vomiting, unspecified
[2019-11-18] MEDS: CLINDAMYCIN 600 MG in DEXTROSE 5% 50 ML IV SCH ×4 (00:56→19:12)
[2019-11-18] MEDS: LEVOTHYROXINE SODIUM 25 MCG TABLET PO SCH (06:17)
[2019-11-18 08:11] LABS: Hematocrit (blood only) 47.5 % (42-52); Hemoglobin 15.7 g/dL (14.0-18.0); Mean Corpuscular Hemoglobin 33.8 pg (25-34); Mean Corpuscular Hgb Conc 33.1 g/dL (32-36); Mean Corpuscular Volume 102.4 fL (80-100); Mean Platelet Volume 9.2 fL (7.4-10.4); Platelet Count 250 K/uL (130-400); RDW Coefficient of Variation 14.4 % (11.5-14.5); RDW Standard Deviation 54.3 fL (36.4-46.3); Red Blood Count 4.64 M/uL (4.7-6.1); White Blood Count 11.34 K/uL (4.8-10.8)
[2019-11-18 08:42] LABS: BUN Creatinine Ratio 11.5 (10-20); Calcium 8.9 mg/dl (8.5-10.1); Creatinine Clr Calc Pharmacy 52.8 ml/min; Est GFR (African American) 83.2; Est GFR (Non-African American) 71.8
[2019-11-18] MEDS: METHYLCELLULOSE POWDER 454 GM JAR PO SCH (10:16)
[2019-11-18] MEDS: MULTIVITAMIN TAB PO SCH (10:17)
[2019-11-18] MEDS: PANTOprazole 40 MG TAB PO SCH (10:18)
[2019-11-18] MEDS: SERTRALINE HCL 50 MG TABLET PO SCH (10:18)
[2019-11-18] MEDS: ENOXAPARIN INJ 40 MG/0.4 ML SYR SQ SCH (10:27)
[2019-11-18] MEDS ORDERED: METOCLOPRAMIDE HCL INJ 5 MG/ML 2 ML VIAL IV ONE (10:53)
--- NOTE | 2019-11-18 10:54 | Hospitalist Progress Note ---
Date of Service November 18, 2019 Assessment & Plan (1) Aspiration pneumonitis: (2) Hypoxic episode: Acute hypoxic respiratory failure This is a 49-year-old male with PMH of intellectual disability, WPW syndrome, chronic diastolic dysfunction, history of congenital heart disease, hypothyroidism, GERD and mood disorder who presents with multiple vomiting episodes prior to arrival, found to be hypoxic 84%. X-ray:IMPRESSION: No acute cardiopulmonary findings. No change in appearance of the chest. Remains afebrile No leukocytosis Lactic acid negative Blood cultures pending Speech therapy evaluation performed: No aspiration noted Recommendations of speech therapist: #1 soft cut diet #2 assistance with intake as needed-encouragement to feed himself #3. Aspiration precautions as outlined Alternate solids and liquids Supervised meals Alert and upright Single bites/small sips/slow rate Weaned off oxygen nocturnal pulse oximetry : positive, will need oxygen 2 L via NC while sleeping Clindamycin IV every 8 hours for now to complete 3 days therapy for possible aspiration pneumonitis (3) Vomiting: Bochdalek hernia seems to be stable per imaging Speech therapy recommendations noted above GI consulted EGD not indicated at this time continue Protonix 40mg po daily for now, BID as needed clear liquids today, hopefully advance tomorrow (4) Mood disorder: Continue SSRI (5) Hypothyroidism (acquired): Continue levothyroxine DVT Ppx: SQ Lovenox Code status: FULL PCP: Yvonne Tovar Dispo: Anticipate discharge to senior care tomorrow when medically stable Admission and Anticipated Discharge Date Admission Date: November 16, 2019 Subjective ff up for possible aspiration pneumonia seen with VASCULAR TECH Bill at the bedside per RN patient was able to take his pills with no problems this morning however after breakfast with oatmeal, patient apparently produced- coughed? vomited? clear, bilious fluid- small amount on exam, seen sleeping but easily awakened not in distress, but seems somewhat uncomfortable ROS difficult to asses due to cognitive does not appear to be dyspneic, does not seem to be localizing a painful area no other issues per soil expert of Systems Review of Systems: All systems reviewed & are unremarkable except as noted in HPI & below Physical Exam Physical Exam: General- alert, not in distress, speaks in sentences with no effort or accessory muscle use somewhat uncomfortable- forehead wrinkled Eyes- anicteric Neck- no JVD Lungs- clear breath sounds bilaterally, no rales/wheezes Heart- normal rate, regular rhythm; no murmurs Abdomen- normal bowel sounds, nondistended, soft, nontender Extremities- no pretibial edema, no calf tenderness Neuro- alert, oriented x 3; no gross focal neurologic deficits Skin- warm & dry Results & Data Results & Data ([facility]) Vital Signs (Past 12 Hours) Vital Signs Temp Pulse Pulse Resp BP Pulse Ox Pulse Ox 11/18/19 03:12 36.5 C 67 18 101/64 97 11/18/19 01:01 72 84 L 11/17/19 23:00 36.9 C 58 L 20 93/51 L 96 Laboratory Results Laboratory Results - last 24 hr 11/17/19 11/18/19 11/18/19 20:43 07:55 07:55 WBC 11.34 H RBC 4.64 L Hgb 15.7 Hct 47.5 MCV 102.4 H MCH 33.8 MCHC 33.1 RDW Std Deviation 54.3 H RDW Coeff of Soraya 14.4 Plt Count 250 MPV 9.2 Sodium 141 Potassium 4.0 Chloride 104 Carbon Dioxide 29 Anion Gap 7.0 BUN 13 Creatinine 1.17 Est Cr Clr Drug Dosing 52.8 Est GFR ( Amer) 83.2 Est GFR (Non-Af Amer) 71.8 BUN/Creatinine Ratio 11.5 Glucose 80 POC Glucose 96 Calcium 8.9 11/18/19 11/18/19 11/18/19 07:55 11:44 16:26 WBC RBC Hgb Hct MCV MCH MCHC RDW Std Deviation RDW Coeff of Soraya Plt Count MPV Sodium Potassium Chloride Carbon Dioxide Anion Gap BUN Creatinine Est Cr Clr Drug Dosing Est GFR ( Amer) Est GFR (Non-Af Amer) BUN/Creatinine Ratio Glucose POC Glucose 83 85 116 H Calcium (1) Vomiting Nausea presence: unspecified Vomiting Intractability: non-intractable Vomiting type: unspecified Qualified Code(s): R11.10 - Vomiting, unspecified
[2019-11-18] MEDS: D5W AND NSS 1,000 ML IV SCH (11:33)
[2019-11-18] MEDS ORDERED: CLINDAMYCIN HCL 150 MG CAP PO SCH (12:00)
--- NOTE | 2019-11-18 12:18 | Gastrointestinal Consultation ---
Date of Consultation November 18, 2019 Assessment & Plan (1) Down's syndrome: (2) Vomiting: No alarm symptoms to warrant emergent EGD, could consider as outpatient with [facility] if symptoms persist. If further symptoms, could increase Pantoprazole to 40 mg by mouth twice daily Advance diet as tolerated, and as per STAFF EDUCATOR recommendations. Supportive care as per hospitalist team History of Present Illness Reason for Consultation: Vomiting Attending Physician: Jorje Woods MD History of Present Illness 49 yo male with intellectual delay secondary to Down's syndrome and known history of Bochdalek hernia who presented to the ER with vomiting and hypoxia. Thus far, workup for aspiration pneumonia has been negative, and he is completing a 3 day course of Clindamycin. He was admitted and seen by STAFF EDUCATOR, who made recommendations regarding feedings. He also underwent a CT abd/pelvis which showed the known Bochdalek hernia, without change when compared to prior imaging. At the time I saw the patient, nursing was at the bedside, and noted no vomiting this AM with administration of PO medications. The patient does not provide much history, and was only answering limited questions, but did say he had some epigastric pain. He provided no further details, despite questioning. Nursing reports no further problems this AM. Allergies Allergy/AdvReac Type Severity Reaction Status Date / Time Bactrim Allergy rash Verified 09/10/12 09:34 sulfamethoxazole Allergy rash Verified 11/16/19 20:36 trimethoprim Allergy rash Verified 11/16/19 20:36 Home Medications Home Medications Medication Instructions Recorded Confirmed Type Biotene Dry Mouth Oral Rinse 1 tbsp PO BID 09/22/18 11/16/19 History Eucerin 1 applic TOPICAL 3XWK 09/22/18 11/16/19 History clobetasol 2 applic TOPICAL WK 09/22/18 11/16/19 History fluoride (sodium) [PreviDent 5000 1 applic DENTAL HS 09/22/18 11/16/19 History Dry Mouth] ketoconazole 1 dose TOPICAL 3XWK 09/22/18 11/16/19 History levothyroxine [Synthroid] 25 mcg PO QAM 09/22/18 11/16/19 History multivitamin 1 tab PO QAM 09/22/18 11/16/19 History pantoprazole 20 mg PO QAM 09/22/18 11/16/19 History sertraline 50 mg PO QAM 09/22/18 11/16/19 History Citrucel Sugar Free 1 ea PO DAILY 07/03/19 11/16/19 History Patient History Medical History Alzheimers disease Diaphragmatic hernia Down's syndrome Hearing loss associated with syndrome of both ears History of scarlet fever as a child Hypothyroidism (acquired) Juvenile idiopathic scoliosis of thoracolumbar region Moderate intellectual disabilities Mood disorder Psoriasis Seborrheic dermatitis Lqwnm-Spqjoyvay-Mkhie (WPW) syndrome Surgical History History of cardiac cath 10/2001--no stents History of cochlear implant right History of mitral valve repair 11/2001--closure of atrial septal defect and mitral valve repair @ [facility] Family History Other Family history not known due to adoption Social History Preferred Language: Polish Communication Ability: Impaired C Consultant Required: No Beliefs That Will Affect Care: None marital status: Single Current Living Situation: Personal Care Facility Current Living Situation Comment: [place] Feels Safe at Home: Yes Safety Concerns: Feels Safe At This Time Smoking Status: Never smoker Hx Alcohol Use: No Hx Substance Use: No Review of Systems Review of Systems: Unobtainable due to cognitive status Physical Exam Constitutional: not ill appearing and + not appropriately hydrated Respiratory: normal respiratory effort; no respiratory distress and no labored breathing Cardiovascular: Rate/Rhythm: regular rate Gastrointestinal (Abdomen): Percussion/Palpation: abdomen soft; abdomen nontender, no guarding and abdomen not rigid Results & Data ([facility]) Vital Signs (Past 12 Hours) Vital Signs Temp Pulse Pulse Resp BP Pulse Ox Pulse Ox 11/18/19 03:12 36.5 C 67 18 101/64 97 11/18/19 01:01 72 84 L PG Care Time/CCT Total # of Minutes Spent Total Time Spent with Patient: Total time spent is greater than 50% in coordination of care (as documented) at patient's floor/unit and/or counseling patient: Coding Level of Care Code 30836 Initial Inpt Care Lvl 2 Diagnoses Down's syndrome Q90.9 Vomiting R11.10 Nausea presence: unspecified Vomiting Intractability: non-intractable Vomiting type: unspecified (1) Vomiting Nausea presence: unspecified Vomiting Intractability: non-intractable Vomiting type: unspecified Qualified Code(s): R11.10 - Vomiting, unspecified
[2019-11-19] MEDS: CLINDAMYCIN 600 MG in DEXTROSE 5% 50 ML IV SCH ×2 (02:48→10:34)
[2019-11-19] MEDS: D5W AND NSS 1,000 ML IV SCH (04:28)
[2019-11-19] MEDS: LEVOTHYROXINE SODIUM 25 MCG TABLET PO SCH (06:30)
[2019-11-19] MEDS: PANTOprazole 40 MG TAB PO SCH (10:33)
[2019-11-19] MEDS: SERTRALINE HCL 50 MG TABLET PO SCH (10:33)
[2019-11-19] MEDS: MULTIVITAMIN TAB PO SCH (10:33)
[2019-11-19] MEDS: ENOXAPARIN INJ 40 MG/0.4 ML SYR SQ SCH (10:34)
[2019-11-19] MEDS: METHYLCELLULOSE POWDER 454 GM JAR PO SCH (10:38)
--- NOTE | 2019-11-19 14:31 | Hospitalist Progress Note ---
Date of Service November 19, 2019 Assessment & Plan (1) Aspiration pneumonitis: (2) Hypoxic episode: Acute hypoxic respiratory failure This is a 49-year-old male with PMH of intellectual disability, WPW syndrome, chronic diastolic dysfunction, history of congenital heart disease, hypothyroidism, GERD and mood disorder who presents with multiple vomiting episodes prior to arrival, found to be hypoxic 84%. X-ray:IMPRESSION: No acute cardiopulmonary findings. No change in appearance of the chest. Remains afebrile No leukocytosis Lactic acid negative Blood cultures: negative Speech therapy evaluation performed: No aspiration noted Recommendations of speech therapist: #1 soft cut diet #2 assistance with intake as needed-encouragement to feed himself #3. Aspiration precautions as outlined Alternate solids and liquids Supervised meals Alert and upright Single bites/small sips/slow rate Weaned off oxygen nocturnal pulse oximetry : positive, will need oxygen 2 L via NC at bedtime and while sleeping completed Clindamycin IV every 8 hours x 3 days for possible aspiration pn eumonitis (3) Vomiting: Bochdalek hernia seems to be stable per imaging Speech therapy recommendations noted above GI consulted EGD not indicated at this time continue Protonix 40mg po daily for now, BID as needed advanced diet tolerating pills but declining meals i believe patient's appetite will improve when he returns to the nursing home discussed with Storm- director of [employer] [facility], will need to make arrangements for home oxygen discussed with case mgr (4) Mood disorder: Continue SSRI (5) Hypothyroidism (acquired): Continue levothyroxine DVT Ppx: SQ Lovenox Code status: FULL PCP: Yvonne Tovar Dispo: d/c to nursing home when oxygen supplement has been arranged Admission and Anticipated Discharge Date Admission Date: November 16, 2019 Subjective ff up for vomiting, aspiration pneumonitis seen resting in bed, comfortable, not in distress he is writing letters on a piece of paper was able to take his pills today with no problems however, appetite is not great, he declined breakfast and lunch had a small BM, soft this AM no other signs, issues noted Review of Systems Review of Systems: All systems reviewed & are unremarkable except as noted in HPI & below Physical Exam Physical Exam: General- not in distress, speaks words, with no effort or accessory muscle use Eyes- anicteric Neck- no JVD Lungs- clear breath sounds , no crackles, no wheezing Heart- normal rate, regular rhythm; no murmurs Abdomen- normal bowel sounds, nondistended, soft, nontender Extremities- no pretibial edema, no calf tenderness Neuro- alert, nonew gross focal neurologic deficits Skin- warm & dry Results & Data Results & Data ([facility]) Vital Signs (Past 12 Hours) Vital Signs Temp Pulse Pulse Resp BP BP Pulse Ox 11/19/19 14:15 37.0 C 58 L 18 85/51 L 91/59 L 90 11/19/19 08:02 37.0 C 58 L 18 91/59 L 90 11/19/19 07:00 63 11/19/19 04:25 36.7 C 64 20 108/64 94 Laboratory Results Laboratory Results - last 24 hr 11/18/19 11/18/19 11/19/19 16:26 20:02 07:45 POC Glucose 116 H 113 H 111 H 11/19/19 11:41 POC Glucose 119 H (1) Vomiting Nausea presence: unspecified Vomiting Intractability: non-intractable Vomiting type: unspecified Qualified Code(s): R11.10 - Vomiting, unspecified
--- NOTE | 2019-11-19 16:36 | Discharge Summary ---
Date of Service November 19, 2019 Admission HPI Per Admitting Provider This is a 49-year-old male with PMH of intellectual disability, WPW syndrome, chronic diastolic dysfunction, history of congenital heart disease, hypothyroidism, GERD and mood disorder who presents with multiple vomiting episodes prior to arrival. Patient resides at the [facility] home. History is provided by staff member at bedside. Patient was eating dinner and subsequently had several episodes of vomiting. Patient has had temperature checked daily as part of COVID precaution and has remained afebrile. Did not vomit any blood. No recent sick contacts in the [facility]. Caregiver states that patient eats normally without issue. No history of aspiration, choking episodes. Was initially hypoxic at 84% on room air upon arrival in ED. Now saturating 99% on 2 L nasal cannula. No fever or chills. Denies any pain. Unable to obtain remainder of ROS due to intellectual disability and patient is very hard of hearing. Admission Exam Per Admitting Provider General Appearance: vitals as above, NAD, sitting up in bed, pleasant, able to nod yes/no Head: normocephalic, atraumatic Eyes: normal inspection, PERRL, conjunctivae normal, anicteric sclerae ENT: hard of hearing, external ear and nose normal, wearing mask Neck: trachea midline, no thyromegaly, normal visual inspection Respiratory: normal respiratory effort, lungs clear to auscultation, no wheeze, rales, rhonchi. Normal insp/exp effort, no accessory muscle use Cardiovascular: regular rate, rhythm, no murmur appreciated, normal peripheral pulses Chest: normal inspection of chest Abdomen/GI: normal bowel sounds, soft, nontender, no hepatosplenomegaly Extremities/Musculoskeletal: no cyanosis or clubbing, extremities motor strength 5/5 Neurologic: PERRL, EOMI, accommodation nl, CN's II-XI intact bilaterally and moves all extremities Skin: no rashes, normal color, warm/dry Principal Diagnosis EPISODE OF HYPOXIA, ASSOCIATED WITH VOMITING; POSSIBLE PNEUMONITIS Discharge Exam General- not in distress, speaks words, with no effort or accessory muscle use Eyes- anicteric Neck- no JVD Lungs- clear breath sounds , no crackles, no wheezing Heart- normal rate, regular rhythm; no murmurs Abdomen- normal bowel sounds, nondistended, soft, nontender Extremities- no pretibial edema, no calf tenderness Neuro- alert, nonew gross focal neurologic deficits Skin- warm & dry Discharge Data Allergies Allergy/AdvReac Type Severity Reaction Status Date / Time Bactrim Allergy rash Verified 09/10/12 09:34 sulfamethoxazole Allergy rash Verified 11/16/19 20:36 trimethoprim Allergy rash Verified 11/16/19 20:36 Consultations 11/16/19 20:58 ED Decision to Admit Stat 11/18/19 10:49 Consult Gastroenterology Routine Ordered Studies XCR 11/16/19: CXR: COMPARISON STUDY: Chest CT 07/03/2019. Chest radiograph July 07, 2019. FINDINGS: Median sternotomy wires are noted. Cardiomediastinal silhouette is stable. There is no evidence for pulmonary edema or pneumonia. Mild bibasilar opacities favor atelectasis. Bilateral Bochdalek hernias are unchanged. These are better depicted on prior CT. IMPRESSION: No acute cardiopulmonary findings. No change in appearance of the chest. 11/17/19 00:23 CT abd pelvis IV con only Routine COMPARISON STUDY: 09/10/2012 FINDINGS: Right subdiaphragmatic hernia contains several bowel loops. There is a nonobstructive finding is unchanged from the prior exam. Right renal hydronephrosis possibly secondary by history to a UPJ defect. This is mildly improved. Left kidney is negative for hydronephrosis. Nonobstructive bowel pattern. Slight bladder wall thickening. IMPRESSION: 1. Chronic and congenital change. 2. No acute process in the abdomen or pelvis. 3. No major change from the prior exam. Hospital Course (1) Aspiration pneumonitis: (2) Hypoxic episode: Acute hypoxic respiratory failure This is a 49-year-old male with PMH of intellectual disability, WPW syndrome, chronic diastolic dysfunction, history of congenital heart disease, hypothyroidism, GERD and mood disorder who presents with multiple vomiting episodes prior to arrival, found to be hypoxic 84%. X-ray:IMPRESSION: No acute cardiopulmonary findings. No change in appearance of the chest. Remains afebrile No leukocytosis Lactic acid negative Blood cultures: negative Speech therapy evaluation performed: No aspiration noted Recommendations of speech therapist: #1 soft cut diet #2 assistance with intake as needed-encouragement to feed himself #3. Aspiration precautions as outlined Alternate solids and liquids Supervised meals Alert and upright Single bites/small sips/slow rate Weaned off oxygen nocturnal pulse oximetry : positive desaturation < 89% for more than 10 minutes, will need oxygen 2 L via NC at bedtime and while sleeping outpatient formal sleep study to r/o Obstructive Sleep Apnea completed Clindamycin IV every 8 hours x 3 days for possible aspiration pneumon itis (3) Vomiting: Bochdalek hernia seems to be stable per imaging Speech therapy recommendations noted above GI consulted EGD not indicated at this time, but may consider if symptoms persist continue Protonix 40mg po daily for now, BID as needed advanced diet tolerating pills but declining meals I believe patient's appetite will improve when he returns to the [facility] discussed case and plan of care with Storm - director and and also with patient's caregiver at [facility], will need to make arrangements for home oxygen discussed with case finisher, arrangements for home oxygen made (4) Mood disorder: Continue SSRI (5) Hypothyroidism (acquired): Continue levothyroxine Dispo: d/c to [facility] ff up with PCP withn 1 week Total Time Total Time Spent Total Time Spent (In Minutes): 55 minutes Discharge Plan Discharge Items Patient Disposition: Home - Self-Care Reason For Visit: ACUTE HYPOXIC RESP FAILURE, VOMITING Discharge Diagnosis: EPISODE OF HYPOXIA, ASSOCIATED WITH VOMITING, RESOLVED POSSIBLE ASPIRATION PNEUMONITIS Activity: Resume your previous activity Non-emergency contact: Primary Care Provider Call non-emergency contact if: you have any medication questions, your symptoms worsen and you have a fever Follow-up/Referrals: Kosta Tovar, [Primary Care Provider] - Diet: Regular and Other - See Diet Comment Diet Comment: SOFT CUT DIET Addtl Attending Provider Instructions: INCREASE PROTONIX FROM 20MG TO 40MG DAILY. MAY RESUME OTHER PREVIOUS MEDICATIONS. SPEECH THERAPY RECOMMENDATIONS: #1 soft cut diet #2 assistance with intake as needed-encouragement to feed himself #3 Aspiration precautions as outlined: Alternate solids and liquids Supervised meals Alert and upright Single bites/small sips/slow rate USE OXYGEN BY NASAL CANNULA AT 2 LITERS WHILE SLEEPING. OUTPATIENT FORMAL SLEEP STUDY TO EVALUATE IF PATIENT HAS OBSTRUCTIVE SLEEP A PNEA. FOLLOW UP WITH PRIMARY CARE PHYSICIAN IN 1 WEEK. THE CLINIC WILL BE CALLING YOU TOMORROW FOR THE APPOINTMENT SCHEDULE. PATIENT MAY NEED TO FOLLOW UP WITH [facility] IF SYMPTOMS PERSIST. Pending Studies at Discharge: Yes Studies:: SLEEP STUDY Stand-Alone Forms: [employer], Smoking Cessation Medications and DC Order Prescriptions: New (DME) Oxygen Home Liters Per Minute See Rx Instructions .ROUTE .MEDSUPPLY Qty: 1 RF: 0 pantoprazole 40 mg Tablet,Delayed Release (Dr/Ec) 40 mg PO QAM Qty: 30 RF: 0 Continued multivitamin Tablet 1 tab PO QAM RF: 0 ketoconazole 2 % Shampoo 1 dose TOPICAL 3XWK RF: 0 levothyroxine [Synthroid] 25 mcg Tablet 25 mcg PO QAM RF: 0 clobetasol 0.05 % Solution 2 applic TOPICAL WK RF: 0 sertraline 50 mg Tablet 50 mg PO QAM RF: 0 fluoride (sodium) [PreviDent 5000 Dry Mouth] 1.1 % Gel 1 applic DENTAL HS RF: 0 Eucerin Cream 1 applic TOPICAL 3XWK RF: 0 Biotene Dry Mouth Oral Rinse Mouthwash 1 tbsp PO BID RF: 0 Citrucel Sugar Free Powder 1 ea PO DAILY RF: 0 Discontinued pantoprazole 20 mg Tablet,Delayed Release (Dr/Ec) 20 mg PO QAM RF: 0 Discharge Orders: Discharge Order (Routine); Ordered 11/19/19 Ordered By: Jorje Woods Admission Data Admit Date/Time: 11/16/19 21:06 Attending Provider: Jorje Woods Admit Provider: Jimmy Zaman Primary Care Provider: Kosta Tovar Other Providers: Jimmy Zaman ; Mauricio Tapia Other Interventions: Discharge Summary Assessment (RN) Last Done: 11/19/19 14:15
== END 2019-11-19 17:20 | disposition home or self-care (01) ==
LOC: ED 18:49 → 2W 21:06 → SUATTDRO 21:06 → INTOOBSV 21:06 → 2W 23:32

== ENCOUNTER 2022-12-09 17:30 | Inpatient (IN) ==
--- NOTE | 2022-12-09 18:09 | XRay Report ---
XR chest 1V portable CLINICAL HISTORY: Chest pain, nonspecific COMPARISON STUDY: Chest radiograph November 16, 2019. Chest CT July 03, 2019. FINDINGS: There are median sternotomy wires. Cardiomediastinal silhouette is stable. Pulmonary vascul ar congestion is noted. Elevation of the right hemidiaphragm with right basilar opacity is noted. The re is linear left basilar opacity. IMPRESSION: 1. Pulmonary vascular congestion without overt pulmonary edema. 2. Stable elevation the right hemidiaphragm. Bibasilar opacities which favor atelectasis over an infe ctious process. ACT 112: Negative or not required by law. Electronically signed by: Luís Samaniego M.D. 12/09/2022 6:07 PM
[2022-12-09 18:22] LABS: Basophils # (auto) 0.08 K/uL (0-0.2); Basophils % (auto) 1.5 %; Eosinophils # (auto) 0.12 K/uL (0-0.50); Eosinophils % (auto) 2.2 %; Hematocrit (blood only) 49.3 % (42.0-52.0); Hemoglobin 16.8 g/dl (14.0-18.0); Immature Granulocytes # (auto) 0.03 K/uL (0.01-0.20); Immature Granulocytes % (auto) 0.5 %; Lymphocytes # (auto) 2.61 K/uL (1.2-3.4); Lymphocytes % (auto) 47.7 %; Mean Corpuscular Hemoglobin 33.4 pg (25.0-34.0); Mean Corpuscular Hgb Conc 34.1 g/dL (32.0-36.0); Mean Platelet Volume 9.2 fL (9.4-12.4); Monocytes # (auto) 0.56 K/uL (0.11-0.59); Monocytes % (auto) 10.2 %; Neutrophils # (auto) 2.07 K/uL (1.40-6.50); Neutrophils % (auto) 37.9 %; Platelet Count 449 K/uL (130-400); RDW Coefficient of Variation 14.1 % (11.5-14.5); RDW Standard Deviation 51.1 fL (36.4-46.3); Red Blood Count 5.03 M/uL (4.70-6.10); White Blood Count 5.47 K/ul (4.8-10.8)
[2022-12-09 18:40] LABS: Alanine Aminotransferase 14 U/L (7-52); Albumin Globulin Ratio 1.1 (0.9-2); Albumin Level 3.6 gm/dl (3.4-5.0); Alkaline Phosphatase 46 U/L (34-104); Anion Gap 3 (3-11); Aspartate Aminotransferase 18 U/L (13-39); BUN Creatinine Ratio 17.1 (10-20); Bilirubin,Total 0.3 mg/dl (0.2-1.0); Blood Urea Nitrogen 18 mg/dl (6-23); Calcium 9.1 mg/dl (8.6-10.3); Carbon Dioxide 34 mmol/L (21-32); Chloride 102 mmol/L (98-107); Est GFR (African American) 92.8 ml/min; Est GFR (Non-African American) 80.1 ml/min; Globulin 3.3 gm/dl (2.5-4.0); Glucose 92 mg/dl (70-99(Fasting)); Potassium 4.6 mmol/L (3.5-5.1); Sodium 139 mmol/L (136-145); Total Protein 6.9 gm/dl (6.0-8.3)
[2022-12-09 18:53] LABS: Partial Thromboplastin Time 28.8 Seconds (21.0-31.0); Prothrombin Time 11.2 Seconds (9.0-12.0)
--- NOTE | 2022-12-09 18:59 | Emergency Department Note ---
History of Present Illness General Chief complaint: Respiratory Problems Stated complaint: LOW O2,REF BY DOC,COUGH Time Seen by Provider: 12/09/22 18:45 Source: patient and family (Caregiver at bedside) History of Present Illness Provider complaint: Shortness of breath cough 52-year-old male presents emergency department with cough and shortness of breath. 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 Draw Fire Operator reports there is a doctor appointment for something else and then they noticed his blood oxygen levels low. She states that the patient does not usually wear oxygen. She states that the patient does wear CPAP at night. She reports that the patient has had a cough and she was with him over the weekend and he was having more tiredness and shortness of breath while walking up stairs or walking long distances. Home Medications Medication Instructions Recorded Confirmed Type clobetasol 0.05 % scalp solution 2 applic topical WK 09/22/18 12/09/22 History ketoconazole 2 % shampoo 1 dose topical 3XWK 09/22/18 12/09/22 History lanolin alcohols-mineral 1 applic topical 3XWK 09/22/18 12/09/22 History oil-w.petrolatum-ceresin topical cream (Eucerin topical cream) levothyroxine 25 mcg tablet 25 mcg PO QAM 09/22/18 12/09/22 History (Synthroid) multivitamin 1 tab PO QAM 09/22/18 12/09/22 History saliva substitute combo no.9 1 tbsp PO BID 09/22/18 12/09/22 History (Biotene Dry Mouth Oral Rinse mouthwash) sertraline 50 mg tablet 50 mg PO QAM 09/22/18 12/09/22 History methylcellulose (laxative) 1 ea PO DAILY 07/03/19 12/09/22 History (Citrucel Sugar Free oral powder) Oxygen Home #1 ea 11/19/19 Rx albuterol sulfate 90 mcg/actuation 2 puff inhalation Q4H PRN Wheezing 12/09/22 12/09/22 History aerosol inhaler carbamide peroxide 6.5 % ear drops 4 drp otic (ear) 2XWK 12/09/22 12/09/22 History (Ear Wax Drops) fluoride (sodium) 1.1 % dental gel 1 ea PO HS 12/09/22 12/09/22 History pantoprazole 40 mg tablet,delayed 40 mg PO DAILYBB 12/09/22 12/09/22 History release saliva stimulant comb. no.3 1 spray mucous membrane QPM 12/09/22 12/09/22 History (Biotene Moisturizing Mouth mucosal spray) Allergies Allergy/AdvReac Type Severity Reaction Status Date / Time sulfamethoxazole Allergy Intermediate rash Verified 12/09/22 20:43 trimethoprim Allergy Intermediate rash Verified 12/09/22 20:43 Past Med/Surg History Medical History (Updated 12/10/22 @ 00:40 by Govind Hollis MD) Alzheimers disease Diaphragmatic hernia Down's syndrome Hearing loss associated with syndrome of both ears History of scarlet fever as a child Hypothyroidism (acquired) Juvenile idiopathic scoliosis of thoracolumbar region Moderate intellectual disabilities Mood disorder Psoriasis Seborrheic dermatitis Alybw-Mcqepgqvu-Avdpo (WPW) syndrome Surgical History History of cardiac cath 10/2001--no stents History of cochlear implant right History of mitral valve repair 11/2001--closure of atrial septal defect and mitral valve repair @ [facility] [place] Family History Other Family history not known due to adoption Social History Smoking Status: Unknown if ever smoked Do You Dip or Chew Tobacco: No; Hx Alcohol Use: No Hx Substance Use: No Preferred Language: Citizen Of [place] Communication Ability: Impaired Communication Ability Comment: pt has mental disabilities Document Control Specialist Required: No Beliefs That Will Affect Care: None marital status: Single Current Living Situation: Personal Care Facility Current Living Situation Comment: [facility] Feels Safe at Home: Yes Assistive Devices: None Physical Exam Vital Signs Vital Signs - 24 hr 12/09/22 17:34 12/09/22 18:47 12/09/22 18:47 Temperature 36.5 C Temperature Source Temporal Artery Scan Pulse Rate 68 Pulse Rate [Right Finger] 52 L Respiratory Rate 16 20 Blood Pressure 113/68 Blood Pressure [Right Arm] 131/73 Blood Pressure Mean 83 Blood Pressure Mean [Right Arm] 92 Pulse Oximetry 88 L 94 94 Oxygen Delivery Method Room Air Nasal Cannula Nasal Cannula Oxygen Flow Rate 2 2 Sepsis Recent Fever Within 48 Hours No Sepsis New/Unexplained Change in Mental Status N/A Sepsis Action Taken by Nursing No Action Required 12/09/22 18:47 12/09/22 19:35 12/09/22 21:00 Temperature Temperature Source Pulse Rate 54 L Pulse Rate [Right Finger] 55 L Respiratory Rate 20 18 20 Blood Pressure Blood Pressure [Right Arm] 118/73 Blood Pressure Mean Blood Pressure Mean [Right Arm] 88 Pulse Oximetry 94 95 93 Oxygen Delivery Method Nasal Cannula Nasal Cannula Nasal Cannula Oxygen Flow Rate 2 2 2 Sepsis Recent Fever Within 48 Hours Sepsis New/Unexplained Change in Mental Status Sepsis Action Taken by Nursing Physical Exam EYES: Conjunctivae and EOM are normal. Right eye exhibits no discharge. Left eye exhibits no discharge. No scleral icterus. NECK: Normal range of motion. Neck supple. No JVD present. CV: Normal rate, regular rhythm, normal heart sounds and intact distal pulses. There is no peripheral edema. Palpable radial pulses bue. PULM/CHEST: Rhonchi bilaterally ABD: The abdomen is soft. There is no tenderness. NEURO: Motor and sensation grossly intact. SKIN: Skin is warm and dry. He is not diaphoretic. PSYCH: normal mood and affect. Behavior is normal. Judgment and thought content normal. Course Course 1844: The patient was evaluated in room B11B. A complete history and physical exam was performed Cardiac monitoring: An order was placed for continuous cardiac monitoring. The monitor shows a rate of 60 with sinus rhythm interpreted by me Patient was found to be hypoxic on room air, supplemental oxygen was applied which improved the patient's oxygen saturation. Draw Fire Operator at bedside states the patient does not usually use oxygen. 1929: D-dimer elevated. Will obtain CT of the chest. 2044: Vital signs stable on supplemental oxygen. Labs within normal limits with exception of an elevated D-dimer. CTA of the chest shows no PE but does show possible aspiration pneumonia. Patient will be treated with Unasyn and admitted to the [facility] hospitalist team. Administered Medications Discontinued Medications Ampicillin Sodium/Sulbactam Sodium 3,000 mg/ Sodium Chloride 108 mls @ 200 mls/hr IV NOW STA; Protocol Stop: 12/09/22 21:04 Last Infusion: 12/09/22 22:58 Dose: 200 mls/hr Documented By: Admin: 12/09/22 22:24 Dose: 200 mls/hr Documented By: FELICITY Ioversol (Ioversol 350 Mg 125ml Prefilled Syringe) 115 ml IV ONCE ONE Stop: 12/09/22 19:41 Last Admin: 12/09/22 19:40 Dose: 115 ml Documented By: HOLLY Critical Care Time Critical Care Time: Yes Total Critical Care Time: 43 I have personally spent greater than 43 minutes of critical care time in the direct management of this patient. This includes bedside care, interpretation of diagnostic studies, and testing, discussion with consultants, patient, and family members, and other required patient management activities. This 43 minutes is in excess of all separately billable procedures. Medical Decision Making Laboratory Data Attestation: I reviewed the patient's lab results. 12/09/22 17:50 12/09/22 17:50 Lab Results 12/09/22 12/09/22 12/09/22 Range/Units 17:50 17:50 17:50 WBC 5.47 (4.8-10.8) K/ul RBC 5.03 (4.70-6.10) M/uL Hgb 16.8 (14.0-18.0) g/dl Hct 49.3 (42.0-52.0) % MCV 98.0 (80.0-100.0) fL MCH 33.4 (25.0-34.0) pg MCHC 34.1 (32.0-36.0) g/dL RDW Std Deviation 51.1 H (36.4-46.3) fL RDW Coeff of Soraya 14.1 (11.5-14.5) % Plt Count 449 H (130-400) K/uL MPV 9.2 L (9.4-12.4) fL Immature Gran % (Auto) 0.5 % Neut % (Auto) 37.9 % Lymph % (Auto) 47.7 % Mcduffie % (Auto) 10.2 % Eos % (Auto) 2.2 % Baso % (Auto) 1.5 % Neut # (Auto) 2.07 (1.40-6.50) K/uL Lymph # (Auto) 2.61 (1.2-3.4) K/uL [place]duffie # (Auto) 0.56 (0.11-0.59) K/uL Eos # (Auto) 0.12 (0-0.50) K/uL Baso # (Auto) 0.08 (0-0.2) K/uL Immature Gran # (Auto) 0.03 (0.01-0.20) K/uL PT 11.2 (9.0-12.0) Seconds INR 1.0 (0.9-1.1) APTT 28.8 (21.0-31.0) Seconds PTT Ratio 1.0 D-Dimer (0-500) ug/L FEU VBG pH (7.36-7.41) VBG pCO2 (38-50) mmHg VBG pO2 mmHg VBG HCO3 mmol/L VBG O2 Saturation % VBG Base Excess mEq/L Sodium 139 (136-145) mmol/L Potassium 4.6 (3.5-5.1) mmol/L Chloride 102 (98-107) mmol/L Carbon Dioxide 34 H (21-32) mmol/L Anion Gap 3 (3-11) BUN 18 (6-23) mg/dl Creatinine 1.05 (0.6-1.4) mg/dl Est Cr Clr Drug Dosing Not Reportable Est GFR ( Amer) 92.8 ml/min Est GFR (Non-Af Amer) 80.1 ml/min BUN/Creatinine Ratio 17.1 (10-20) Glucose 92 (70-99(Fasting)) mg/dl Calcium 9.1 (8.6-10.3) mg/dl Total Bilirubin 0.3 (0.2-1.0) mg/dl AST 18 (13-39) U/L ALT 14 (7-52) U/L Alkaline Phosphatase 46 (34-104) U/L Troponin I High Sens 5.8 (0-20) pg/ml B-Natriuretic Peptide (0-100) pg/ml Total Protein 6.9 (6.0-8.3) gm/dl Albumin 3.6 (3.4-5.0) gm/dl Globulin 3.3 (2.5-4.0) gm/dl Albumin/Globulin Ratio 1.1 (0.9-2) SARS-CoV-2 (PCR) (Negative) Influenza Type A (PCR) (Neg) Influenza Type B (PCR) (Neg) RSV (RT-PCR) (Neg) 12/09/22 12/09/22 12/09/22 Range/Units 17:50 19:04 19:04 WBC (4.8-10.8) K/ul RBC (4.70-6.10) M/uL Hgb (14.0-18.0) g/dl Hct (42.0-52.0) % MCV (80.0-100.0) fL MCH (25.0-34.0) pg MCHC (32.0-36.0) g/dL RDW Std Deviation (36.4-46.3) fL RDW Coeff of Soraya (11.5-14.5) % Plt Count (130-400) K/uL MPV (9.4-12.4) fL Immature Gran % (Auto) % Neut % (Auto) % Lymph % (Auto) % [place]duffie % (Auto) % Eos % (Auto) % Baso % (Auto) % Neut # (Auto) (1.40-6.50) K/uL Lymph # (Auto) (1.2-3.4) K/uL [place]duff[place] # (Auto) (0.11-0.59) K/uL Eos # (Auto) (0-0.50) K/uL Baso # (Auto) (0-0.2) K/uL Immature Gran # (Auto) (0.01-0.20) K/uL PT (9.0-12.0) Seconds INR (0.9-1.1) APTT (21.0-31.0) Seconds PTT Ratio D-Dimer 930 H* (0-500) ug/L FEU VBG pH 7.42 H (7.36-7.41) VBG pCO2 54 H (38-50) mmHg VBG pO2 43 mmHg VBG HCO3 35 mmol/L VBG O2 Saturation 73.6 % VBG Base Excess 8.7 mEq/L Sodium (136-145) mmol/L Potassium (3.5-5.1) mmol/L Chloride (98-107) mmol/L Carbon Dioxide (21-32) mmol/L Anion Gap (3-11) BUN (6-23) mg/dl Creatinine (0.6-1.4) mg/dl Est Cr Clr Drug Dosing Est GFR ( Amer) ml/min Est GFR (Non-Af Amer) ml/min BUN/Creatinine Ratio (10-20) Glucose (70-99(Fasting)) mg/dl Calcium (8.6-10.3) mg/dl Total Bilirubin (0.2-1.0) mg/dl AST (13-39) U/L ALT (7-52) U/L Alkaline Phosphatase (34-104) U/L Troponin I High Sens (0-20) pg/ml B-Natriuretic Peptide 27 (0-100) pg/ml Total Protein (6.0-8.3) gm/dl Albumin (3.4-5.0) gm/dl Globulin (2.5-4.0) gm/dl Albumin/Globulin Ratio (0.9-2) SARS-CoV-2 (PCR) (Negative) Influenza Type A (PCR) (Neg) Influenza Type B (PCR) (Neg) RSV (RT-PCR) (Neg) 12/09/22 Range/Units 19:28 WBC (4.8-10.8) K/ul RBC (4.70-6.10) M/uL Hgb (14.0-18.0) g/dl Hct (42.0-52.0) % MCV (80.0-100.0) fL MCH (25.0-34.0) pg MCHC (32.0-36.0) g/dL RDW Std Deviation (36.4-46.3) fL RDW Coeff of Soraya (11.5-14.5) % Plt Count (130-400) K/uL MPV (9.4-12.4) fL Immature Gran % (Auto) % Neut % (Auto) % Lymph % (Auto) % Mcduffie % (Auto) % Eos % (Auto) % Baso % (Auto) % Neut # (Auto) (1.40-6.50) K/uL Lymph # (Auto) (1.2-3.4) K/uL [place]ff[place] # (Auto) (0.11-0.59) K/uL Eos # (Auto) (0-0.50) K/uL Baso # (Auto) (0-0.2) K/uL Immature Gran # (Auto) (0.01-0.20) K/uL PT (9.0-12.0) Seconds INR (0.9-1.1) APTT (21.0-31.0) Seconds PTT Ratio D-Dimer (0-500) ug/L FEU VBG pH (7.36-7.41) VBG pCO2 (38-50) mmHg VBG pO2 mmHg VBG HCO3 mmol/L VBG O2 Saturation % VBG Base Excess mEq/L Sodium (136-145) mmol/L Potassium (3.5-5.1) mmol/L Chloride (98-107) mmol/L Carbon Dioxide (21-32) mmol/L Anion Gap (3-11) BUN (6-23) mg/dl Creatinine (0.6-1.4) mg/dl Est Cr Clr Drug Dosing Est GFR ( Amer) ml/min Est GFR (Non-Af Amer) ml/min BUN/Creatinine Ratio (10-20) Glucose (70-99(Fasting)) mg/dl Calcium (8.6-10.3) mg/dl Total Bilirubin (0.2-1.0) mg/dl AST (13-39) U/L ALT (7-52) U/L Alkaline Phosphatase (34-104) U/L Troponin I High Sens (0-20) pg/ml B-Natriuretic Peptide (0-100) pg/ml Total Protein (6.0-8.3) gm/dl Albumin (3.4-5.0) gm/dl Globulin (2.5-4.0) gm/dl Albumin/Globulin Ratio (0.9-2) SARS-CoV-2 (PCR) NEGATIVE (Negative) Influenza Type A (PCR) Negative (Neg) Influenza Type B (PCR) Negative (Neg) RSV (RT-PCR) Negative (Neg) Imaging Data Radiologist's Impression: Chest X-Ray 12/09/22 17:37 XR chest 1V portable CLINICAL HISTORY: Chest pain, nonspecific COMPARISON STUDY: Chest radiograph November 16, 2019. Chest CT July 03, 2019. FINDINGS: There are median sternotomy wires. Cardiomediastinal silhouette is stable. Pulmonary vascular congestion is noted. Elevation of the right hemidiaphragm with right basilar opacity is noted. There is linear left basilar opacity. IMPRESSION: 1. Pulmonary vascular congestion without overt pulmonary edema. 2. Stable elevation the right hemidiaphragm. Bibasilar opacities which favor atelectasis over an infectious process. ACT 112: Negative or not required by law. Electronically signed by: Luís Samaniego M.D. 12/09/2022 6:07 PM Chest CTA 12/09/22 19:20 Exam(s): CTA CHEST IV Amt: 115 ml optiray 350 EXAM: CT Angiography Chest With Intravenous Contrast CLINICAL HISTORY: Reason for exam: ro PE. TECHNIQUE: Axial computed tomographic angiography images of the chest with intravenous contrast. CTDI is 25.08 mGy and DLP is 715.72 mGy-cm. Automated exposure control was utilized for the study. A dose lowering technique was utilized adhering to the principles of ALARA. MIP reconstructed images were created and reviewed. COMPARISON: No relevant prior studies available. FINDINGS: Pulmonary arteries: Unremarkable. No acute pulmonary embolism. Aorta: No acute findings. No thoracic aortic aneurysm. Lungs: Airspace consolidation at the LEFT lung base, consistent with pneumonia, correlate for aspiration. Pleural space: Unremarkable. No significant effusion. No pneumothorax. Heart: Cardiomegaly. No significant pericardial effusion. No evidence of RV dysfunction. Bones/joints: Sternotomy wires. Degenerative changes of the spine. No acute fracture. No dislocation. Soft tissues: Unremarkable. Lymph nodes: Unremarkable. No enlarged lymph nodes. Upper abdomen: Elevated RIGHT hemidiaphragm. IMPRESSION: 1. No acute pulmonary embolism. 2. Airspace consolidation at the LEFT lung base, consistent with pneumonia, correlate for aspiration. Electronically signed by: Ryan Thomas MD 12/09/22 20:18 PM ECG Data Attestation: I personally reviewed and interpreted this ECG as follows: Additional Comments: Sinus rhythm with rate 67. [place] 154 QRS [address] elevation or ST depression. [facility] Narrative 1845: The patient was evaluated in room B11B. A complete history and physical exam was performed Cardiac monitoring: An order was placed for continuous cardiac monitoring. The monitor shows a rate of 60 with sinus rhythm interpreted by me Patient was found to be hypoxic on room air, supplemental oxygen was applied which improved the patient's oxygen saturation. Draw Fire Operator at bedside states the patient does not usually use oxygen. 1929: D-dimer elevated. Will obtain CT of the chest. 2044: Vital signs stable on supplemental oxygen. Labs within normal limits with exception of an elevated D-dimer. CTA of the chest shows no PE but does show possible aspiration pneumonia. Patient will be treated with Unasyn and admitted to the [facility] hospitalist team. Impression & Plan Hypoxic episode, Aspiration pneumonitis Discharge Plan Visit Data Chief Complaint: Respiratory Problems Stated Complaint: LOW O2,REF BY DOC,COUGH ED Provider: Govind Hollis Discharge Problem: Hypoxic episode, Aspiration pneumonitis Patient Disposition: Admitted As Inpatient Prescriptions Prescriptions: No Action multivitamin Tablet 1 tab PO QAM ketoconazole 2 % Shampoo 1 dose TOPICAL 3XWK Rx Instructions: MON, WED, & FRI. levothyroxine [Synthroid] 25 mcg Tablet 25 mcg PO QAM clobetasol 0.05 % Solution 2 applic TOPICAL WK Rx Instructions: APPLY TWICE A DAY ON TUESDAYS ONLY sertraline 50 mg Tablet 50 mg PO QAM Eucerin Cream 1 applic TOPICAL 3XWK Rx Instructions: , , & SAT EVENINGS Biotene Dry Mouth Oral Rinse Mouthwash 1 tbsp PO BID Citrucel Sugar Free Powder 1 ea PO DAILY Rx Instructions: 1 heaping tablespoon mixed in 8 ounces of water and drink (DME) Oxygen Home Liters Per Minute See Rx Instructions .ROUTE .MEDSUPPLY Qty: 1 0RF Rx Instructions: 2 Liters via nasal cannula at night and while sleepigng Ear Wax Drops 6.5 % Drops 4 drp OTIC (EAR) 2XWK Rx Instructions: & TH AT HS. albuterol sulfate 90 mcg/actuation Hfa Aerosol Inhaler 2 puff INHALATION Q4H PRN (Reason: Wheezing) fluoride (sodium) 1.1 % gel 1 ea PO HS Biotene Moisturizing Mouth [place],Non-Aerosol 1 spray MUCOUS MEMBRANE QPM pantoprazole 40 mg tablet,delayed release (DR/EC) 40 mg PO DAILYBB Rx Instructions: at least 30 minutes before breakfast
[2022-12-09 19:17] LABS: D Dimer 930 ug/L FEU (0-500)
[2022-12-09 19:28] LABS: Base Excess VBG 8.7 mEq/L; HCO3 VBG 35 mmol/L; Oxygen Saturation VBG 73.6 %; PCO2 VBG 54 mmHg (38-50); PO2 VBG 43 mmHg; pH VBG 7.42 (7.36-7.41)
[2022-12-09 19:33] LABS: Troponin I High Sensitivity 5.8 pg/ml (0-20)
[2022-12-09] MEDS ORDERED: IOVERSOL 350 MG 125mL Prefilled Syringe IV ONE (19:40)
[2022-12-09 20:19] LABS: Influenza A virus by PCR Negative (Neg); Influenza B virus by PCR Negative (Neg); RSV by PCR Negative (Neg); SARS CoV2 RNA(COVID-19) Ceph NEGATIVE (Negative)
--- NOTE | 2022-12-09 20:19 | CT Scan Report ---
Exam(s): CTA CHEST IV Amt: 115 ml optiray 350 EXAM: CT Angiography Chest With Intravenous Contrast CLINICAL HISTORY: Reason for exam: ro PE. TECHNIQUE: Axial computed tomographic angiography images of the chest with intravenous contrast. CTDI is 25.08 mGy and DLP is 715.72 mGy-cm. Automated exposure control was utilized for the study. A dose lowering technique was utilized adhering to the principles of ALARA. MIP reconstructed images were created and reviewed. COMPARISON: No relevant prior studies available. FINDINGS: Pulmonary arteries: Unremarkable. No acute pulmonary embolism. Aorta: No acute findings. No thoracic aortic aneurysm. Lungs: Airspace consolidation at the LEFT lung base, consistent with pneumonia, correlate for aspiration. Pleural space: Unremarkable. No significant effusion. No pneumothorax. Heart: Cardiomegaly. No significant pericardial effusion. No evidence of RV dysfunction. Bones/joints: Sternotomy wires. Degenerative changes of the spine. No acute fracture. No dislocation. Soft tissues: Unremarkable. Lymph nodes: Unremarkable. No enlarged lymph nodes. Upper abdomen: Elevated RIGHT hemidiaphragm. IMPRESSION: 1. No acute pulmonary embolism. 2. Airspace consolidation at the LEFT lung base, consistent with pneumonia, correlate for aspiration. Electronically signed by: Ryan Thomas MD 12/09/22 20:18 PM
[2022-12-09] MEDS ORDERED: AMPICILLIN/SULBACTAM SOD 3,000 MG in 0.9 % SODIUM CHLORIDE 100 ML IV STA (20:32)
--- NOTE | 2022-12-09 22:16 | History & Physical Report ---
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 Hypoxia Aspiration pneumonitis CTA chest showing aspiration pneumonia and left lower lobe Patient oxygen sats were in the low 80s at PCPs office today. Patient has history of aspiration pneumonia in the past ER started Unasyn which will be continued Saturating okay on 2 L and seems comfortable Gentle fluids Monitor in med/telemetry Hypothyroidism On Synthyroid We will follow TSH levels GERD Protonix History of Alzheimer's disease Dementia Moderate intellectual disability Lives at [facility] Prediabetes We will follow HbA1c levels DVT prophylaxis Lovenox Disposition med/telemetry Full code (2) Hypoxic episode: History of Present Illness Chief Complaint: Aspiration pneumonitis and hypoxia Primary Care Provider: Madhu Jay MD 52-year-old male with past med significant for hypothyroidism, prediabetes, nocturnal hypoxia uses 2 L nightly, Unjhr-Bgoznzhww-Cqcst syndrome, Down syndrome, atrial septal defectprimum s/p repair, s/p mitral valve repair, moderate intellectual disability, diverticulosis, GERD, juvenile idiopathic sc oliosis, hearing loss associated with syndrome, s/p cochlear implant, Alzheimer's disease, 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 Patient went to see PCP today for a lump on his right arm and when he checked his oxygen it was in the low 80s so he was sent in here. Congesting comfortably and hemodynamically stable. Patient denies any headache or chest pain or belly pain or back pain. No cough. As per caregiver he can swallow okay with regular diet. No diarrhea. Normal bowel movements. No swelling in the legs. No fevers. Ambulates okay. Patient has history of aspiration pneumonitis in the past Allergies Allergy/AdvReac Type Severity Reaction Status Date / Time sulfamethoxazole Allergy Intermediate rash Verified 12/09/22 20:43 trimethoprim Allergy Intermediate rash Verified 12/09/22 20:43 Home Medications Medication Instructions Recorded Confirmed Type clobetasol 0.05 % scalp solution 2 applic topical WK 09/22/18 12/09/22 History ketoconazole 2 % shampoo 1 dose topical 3XWK 09/22/18 12/09/22 History lanolin alcohols-mineral 1 applic topical 3XWK 09/22/18 12/09/22 History oil-w.petrolatum-ceresin topical cream (Eucerin topical cream) levothyroxine 25 mcg tablet 25 mcg PO QAM 09/22/18 12/09/22 History (Synthroid) multivitamin 1 tab PO QAM 09/22/18 12/09/22 History saliva substitute combo no.9 1 tbsp PO BID 09/22/18 12/09/22 History (Biotene Dry Mouth Oral Rinse mouthwash) sertraline 50 mg tablet 50 mg PO QAM 09/22/18 12/09/22 History methylcellulose (laxative) 1 ea PO DAILY 07/03/19 12/09/22 History (Citrucel Sugar Free oral powder) Oxygen Home #1 ea 11/19/19 Rx albuterol sulfate 90 mcg/actuation 2 puff inhalation Q4H PRN Wheezing 12/09/22 12/09/22 History aerosol inhaler carbamide peroxide 6.5 % ear drops 4 drp otic (ear) 2XWK 12/09/22 12/09/22 History (Ear Wax Drops) fluoride (sodium) 1.1 % dental gel 1 ea PO HS 12/09/22 12/09/22 History pantoprazole 40 mg tablet,delayed 40 mg PO DAILYBB 12/09/22 12/09/22 History release saliva stimulant comb. no.3 1 spray mucous membrane QPM 12/09/22 12/09/22 History (Biotene Moisturizing Mouth mucosal spray) Past Med/Surg History Medical History Alzheimers disease Diaphragmatic hernia Down's syndrome Hearing loss associated with syndrome of both ears History of scarlet fever as a child Hypothyroidism (acquired) Juvenile idiopathic scoliosis of thoracolumbar region Moderate intellectual disabilities Mood disorder Psoriasis Seborrheic dermatitis Vfgoa-Xhnqjwxwn-Yuaok (WPW) syndrome Surgical History History of cardiac cath 10/2001--no stents History of cochlear implant right History of mitral valve repair 11[place]2001[place] septal [place] [facility] [place] History Other Family history not known due to adoption Social History Smoking Status: Unknown if ever smoked Do You Dip or Chew Tobacco: No; Hx Alcohol Use: No Hx Substance Use: No Preferred Language: Setswana Communication Ability: Impaired Communication Ability Comment: 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[employer] Required: No Beliefs That Will Affect Care: None marital status: Single Current Living Situation: Personal Care Facility Current Living Situation Comment: [facility] Feels Safe at Home: Yes Assistive Devices: None Review of Systems Review of Systems: All systems reviewed & are unremarkable except as noted in Subjective Physical Exam Physical Exam: General- Not in distress Head- atraumatic Eyes- PERRL ENT- oropharynx clear Neck- supple, no JVD, Lungs- clear to auscultation and percussion Heart- regular rate and rhythm; no murmur, no gallop, Abdomen- normal bowel sounds, soft, nontender, no distension Extremities- no pretibial edema, no erythema seen. mobile non tender lump seen on right arm Neuro- alert, oriented x 3; PERRL, EOMI; no facial palsy; no dysarthria; obeys simple commands Skin- warm & dry Results & Data Results & Data Vital Signs (Past 12 Hours) Vital Signs Temp Pulse Pulse Resp BP BP Pulse Ox 12/09/22 21:00 55 L 20 118/73 93 12/09/22 19:35 18 95 12/09/22 18:47 54 L 20 94 12/09/22 18:47 52 L 20 131/73 94 12/09/22 18:47 94 12/09/22 17:34 36.5 C 68 16 113/68 88 L O2 Del Method O2 Flow Rate 12/09/22 21:00 Nasal Cannula 2 12/09/22 19:35 Nasal Cannula 2 12/09/22 18:47 Nasal Cannula 2 12/09/22 18:47 Nasal Cannula 2 12/09/22 18:47 Nasal Cannula 2 12/09/22 17:34 Room Air Diagnostic Findings Laboratory Results WBC 5.47 K/ul (4.8-10.8) 12/09/22 17:50 RBC 5.03 M/uL (4.70-6.10) 12/09/22 17:50 Hgb 16.8 g/dl (14.0-18.0) 12/09/22 17:50 Hct 49.3 % (42.0-52.0) 12/09/22 17:50 MCV 98.0 fL (80.0-100.0) 12/09/22 17:50 MCH 33.4 pg (25.0-34.0) 12/09/22 17:50 MCHC 34.1 g/dL (32.0-36.0) 12/09/22 17:50 RDW Std Deviation 51.1 fL (36.4-46.3) H 12/09/22 17:50 RDW Coeff of Soraya 14.1 % (11.5-14.5) 12/09/22 17:50 Plt Count 449 K/uL (130-400) H 12/09/22 17:50 MPV 9.2 fL (9.4-12.4) L 12/09/22 17:50 Immature Gran % (Auto) 0.5 % 12/09/22 17:50 Neut % (Auto) 37.9 % 12/09/22 17:50 Lymph % (Auto) 47.7 % 12/09/22 17:50 Sweet [place] % (Auto) 10.2 % 12/09/22 17:50 Eos % (Auto) 2.2 % 12/09/22 17:50 Baso % (Auto) 1.5 % 12/09/22 17:50 Neut # (Auto) 2.07 K/uL (1.40-6.50) 12/09/22 17:50 Lymph # (Auto) 2.61 K/uL (1.2-3.4) 12/09/22 17:50 Sweet [place] # (Auto) 0.56 K/uL (0.11-0.59) 12/09/22 17:50 Eos # (Auto) 0.12 K/uL (0-0.50) 12/09/22 17:50 Baso # (Auto) 0.08 K/uL (0-0.2) 12/09/22 17:50 Immature Gran # (Auto) 0.03 K/uL (0.01-0.20) 12/09/22 17:50 PT 11.2 Seconds (9.0-12.0) 12/09/22 17:50 INR 1.0 (0.9-1.1) 12/09/22 17:50 APTT 28.8 Seconds (21.0-31.0) 12/09/22 17:50 PTT Ratio 1.0 12/09/22 17:50 D-Dimer 930 ug/L FEU (0-500) H* 12/09/22 17:50 VBG pH 7.42 (7.36-7.41) H 12/09/22 19:04 VBG pCO2 54 mmHg (38-50) H 12/09/22 19:04 VBG pO2 43 mmHg 12/09/22 19:04 VBG HCO3 35 mmol/L 12/09/22 19:04 VBG O2 Saturation 73.6 % 12/09/22 19:04 VBG Base Excess 8.7 mEq/L 12/09/22 19:04 Sodium 139 mmol/L (136-145) 12/09/22 17:50 Potassium 4.6 mmol/L (3.5-5.1) 12/09/22 17:50 Chloride 102 mmol/L (98-107) 12/09/22 17:50 Carbon Dioxide 34 mmol/L (21-32) H 12/09/22 17:50 Anion Gap 3 (3-11) 12/09/22 17:50 BUN 18 mg/dl (6-23) 12/09/22 17:50 Creatinine 1.05 mg/dl (0.6-1.4) 12/09/22 17:50 Est Cr Clr Drug Dosing Not Reportable 12/09/22 17:50 Est GFR ( Amer) 92.8 ml/min 12/09/22 17:50 Est GFR (Non-Af Amer) 80.1 ml/min 12/09/22 17:50 BUN/Creatinine Ratio 17.1 (10-20) 12/09/22 17:50 Glucose 92 mg/dl (70-99(Fasting)) 12/09/22 17:50 Calcium 9.1 mg/dl (8.6-10.3) 12/09/22 17:50 Total Bilirubin 0.3 mg/dl (0.2-1.0) 12/09/22 17:50 AST 18 U/L (13-39) 12/09/22 17:50 ALT 14 U/L (7-52) 12/09/22 17:50 Alkaline Phosphatase 46 U/L (34-104) 12/09/22 17:50 Troponin I High Sens 5.8 pg/ml (0-20) 12/09/22 17:50 B-Natriuretic Peptide 27 pg/ml (0-100) 12/09/22 19:04 Total Protein 6.9 gm/dl (6.0-8.3) 12/09/22 17:50 Albumin 3.6 gm/dl (3.4-5.0) 12/09/22 17:50 Globulin 3.3 gm/dl (2.5-4.0) 12/09/22 17:50 Albumin/Globulin Ratio 1.1 (0.9-2) 12/09/22 17:50 SARS-CoV-2 (PCR) NEGATIVE (Negative) 12/09/22 19:28 Influenza Type A (PCR) Negative (Neg) 12/09/22 19:28 Influenza Type B (PCR) Negative (Neg) 12/09/22 19:28 RSV (RT-PCR) Negative (Neg) 12/09/22 19:28 Impressions Chest X-Ray 12/09/22 17:37 XR chest 1V portable CLINICAL HISTORY: Chest pain, nonspecific COMPARISON STUDY: Chest radiograph November 16, 2019. Chest CT July 03, 2019. FINDINGS: There are median sternotomy wires. Cardiomediastinal silhouette is stable. Pulmonary vascular congestion is noted. Elevation of the right hemidiaphragm with right basilar opacity is noted. There is linear left basilar opacity. IMPRESSION: 1. Pulmonary vascular congestion without overt pulmonary edema. 2. Stable elevation the right hemidiaphragm. Bibasilar opacities which favor atelectasis over an infectious process. ACT 112: Negative or not required by law. Electronically signed by: Luís Samaniego M.D. 12/09/2022 6:07 PM Chest CTA 12/09/22 19:20 Exam(s): CTA CHEST IV Amt: 115 ml optiray 350 EXAM: CT Angiography Chest With Intravenous Contrast CLINICAL HISTORY: Reason for exam: ro PE. TECHNIQUE: Axial computed tomographic angiography images of the chest with intravenous contrast. CTDI is 25.08 mGy and DLP is 715.72 mGy-cm. Automated exposure control was utilized for the study. A dose lowering technique was utilized adhering to the principles of ALARA. MIP reconstructed images were created and reviewed. COMPARISON: No relevant prior studies available. FINDINGS: Pulmonary arteries: Unremarkable. No acute pulmonary embolism. Aorta: No acute findings. No thoracic aortic aneurysm. Lungs: Airspace consolidation at the LEFT lung base, consistent with pneumonia, correlate for aspiration. Pleural space: Unremarkable. No significant effusion. No pneumothorax. Heart: Cardiomegaly. No significant pericardial effusion. No evidence of RV dysfunction. Bones/joints: Sternotomy wires. Degenerative changes of the spine. No acute fracture. No dislocation. Soft tissues: Unremarkable. Lymph nodes: Unremarkable. No enlarged lymph nodes. Upper abdomen: Elevated RIGHT hemidiaphragm. IMPRESSION: 1. No acute pulmonary embolism. 2. Airspace consolidation at the LEFT lung base, consistent with pneumonia, correlate for aspiration. Electronically signed by: Ryan Thomas MD 12/09/22 20:18 PM ECG Additional Comments: ECG normal sinus rhythm with rate of 67. Left anterior fascicle block. Code Status & VTE Plan VTE Prophylaxis Plan VTE Prophylaxis will be ordered: Yes
[2022-12-10] MEDS ORDERED: POLYETHYLENE (MIRALAX) 17 GM PACK PO PRN (00:56)
[2022-12-10] MEDS ORDERED: ONDANSETRON INJ 2 MG/ML 2 ML VIAL IV PRN (00:56)
[2022-12-10] MEDS ORDERED: NITROGLYCERIN SL 0.4 MG/TAB TAB SL PRN (00:56)
[2022-12-10] MEDS ORDERED: ACETAMINOPHEN 325 MG TAB PO PRN (00:56)
[2022-12-10] MEDS ORDERED: ALBUTEROL HFA 8 GM INHALER INH PRN (00:56)
[2022-12-10] MEDS ORDERED: SODIUM CHLORIDE 0.9% 1000ML 1,000 ML IV SCH (00:56)
[2022-12-10 05:02] LABS: Basophils # (auto) 0.07 K/uL (0-0.2); Basophils % (auto) 1.4 %; Eosinophils # (auto) 0.12 K/uL (0-0.50); Eosinophils % (auto) 2.4 %; Hematocrit (blood only) 44.8 % (42.0-52.0); Hemoglobin 14.9 g/dl (14.0-18.0); Immature Granulocytes # (auto) 0.01 K/uL (0.01-0.20); Immature Granulocytes % (auto) 0.2 %; Lymphocytes # (auto) 2.07 K/uL (1.2-3.4); Lymphocytes % (auto) 42.1 %; Mean Corpuscular Hemoglobin 33.1 pg (25.0-34.0); Mean Corpuscular Hgb Conc 33.3 g/dL (32.0-36.0); Mean Corpuscular Volume 99.6 fL (80.0-100.0); Monocytes % (auto) 12.2 %; Neutrophils # (auto) 2.05 K/uL (1.40-6.50); Neutrophils % (auto) 41.7 %; Platelet Count 375 K/uL (130-400); RDW Coefficient of Variation 14.1 % (11.5-14.5); RDW Standard Deviation 51.9 fL (36.4-46.3); White Blood Count 4.92 K/ul (4.8-10.8)
[2022-12-10 05:19] LABS: BUN Creatinine Ratio 12.6 (10-20); Creatinine Clr Calc Pharmacy 53.8 ml/min; Est GFR (African American) 86.8 ml/min; Est GFR (Non-African American) 74.9 ml/min; Magnesium 1.9 mg/dl (1.7-2.4); Potassium 3.6 mmol/L (3.5-5.1)
[2022-12-10] MEDS: AMPICILLIN/SULBACTAM SOD 3,000 MG in 0.9 % SODIUM CHLORIDE 100 ML IV SCH ×4 (05:52→23:52)
[2022-12-10] MEDS: PANTOprazole 40 MG TAB PO SCH (06:20)
[2022-12-10] MEDS: LEVOTHYROXINE SODIUM 25 MCG TABLET PO SCH (06:20)
--- NOTE | 2022-12-10 08:01 | Electrocardiogram Report ---
Test Reason : Blood Pressure : / mmHG Vent. Rate : 067 BPM Atrial Rate : 067 BPM P-R Int : 154 ms QRS Dur : 074 ms QT Int : 386 ms P-R-T Axes : 042 -49 047 degrees QTc Int : 407 ms Normal sinus rhythm Left anterior fascicular block Possible Old Lateral infarct Abnormal ECG When compared with ECG of 16-NOV-2019 19:46, Borderline criteria for Lateral infarct are now Present Left anterior fascicular block now present Confirmed by Pavan Everett ([id number]) on 12/10/2022 8:01:02 AM Referred By: Madhu Jay Confirmed By:Pavan Everett
[2022-12-10] MEDS ORDERED: [UNRECOGNIZED DRUG - OTHER] PO SCH (09:00)
[2022-12-10] MEDS: ADVANCED PROBIOTIC 1250 MG CAPSULE PO SCH (09:02)
[2022-12-10] MEDS: ENOXAPARIN INJ 40 MG/0.4 ML SYR SQ SCH (09:02)
[2022-12-10] MEDS: MULTIVITAMIN TAB PO SCH (09:03)
[2022-12-10] MEDS: SERTRALINE HCL 50 MG TABLET PO SCH (09:03)
[2022-12-10] MEDS: METHYLCELLULOSE POWDER 454 GM JAR PO SCH (09:03)
--- NOTE | 2022-12-10 20:51 | Hospitalist Progress Note ---
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 Acute Hypoxic respiratory failure Aspiration pneumonia CTA chest showing aspiration pneumonia and left lower lobe Patient oxygen sats were in the low 80s at PCPs office Patient has history of aspiration pneumonia in the past ER started Unasyn which will be continued Continue oxygen, wean as tolerated Hypothyroidism On Synthyroid We will follow TSH levels GERD Protonix History of Alzheimer's disease Dementia Moderate intellectual disability Lives at [facility] Prediabetes We will follow HbA1c levels DVT prophylaxis Lovenox Disposition med/telemetry Full code (2) Hypoxic episode: Admission and Anticipated Discharge Date Admission Date: December 09, 2022 Subjective Remains on oxygen (4L NC) Patient admitted overnight No acute events noted Patient not able to provide ROS Review of Systems Review of Systems: Unable to obtain due to cognitive impairment Physical Exam Physical Exam: Appears well nourished, no acute distress, sitting in bed Respiratory: breathing comfortably, no wheezing/rhonchi Cardiovascular: Regular rate and rhythm, no murmurs/rubs Gastrointestinal (Abdomen): Soft, non tender Musculoskeletal: No edema Neurologic: awake, sitting in bed comfortably, baseline intellectual impairment. Not answering questions or actively participating in exam. Psychiatric: calm Results & Data Results & Data Vital Signs (Past 12 Hours) Vital Signs Temp Pulse Pulse Resp BP BP Pulse Ox 12/10/22 20:00 12/10/22 19:27 36.7 C 52 L 16 108/68 93 12/10/22 17:11 36.6 C 53 L 18 93/56 L 93 12/10/22 19:14 56 L 12/10/22 11:07 36.3 C L 53 L 18 106/69 94 O2 Del Method O2 Flow Rate 12/10/22 20:00 Nasal Cannula 2 12/10/22 19:27 Nasal Cannula 2 12/10/22 17:11 Nasal Cannula 3 12/10/22 19:14 12/10/22 11:07 Nasal Cannula 4
[2022-12-10] MEDS ORDERED: NON-FORMULARY MEDICATION (Saliva Stimulant Comb. No.3 [Biotene Moisturizing Mouth] Spray,N MUCOUS MEMBRANE SCH (21:00)
[2022-12-10] MEDS ORDERED: CARBAMIDE PEROXIDE 6.5% 15 ML BTL OT SCH (21:00)
[2022-12-10] MEDS ORDERED: FLUORIDE 1.1% PO SCH (21:00)
[2022-12-11] MEDS: AMPICILLIN/SULBACTAM SOD 3,000 MG in 0.9 % SODIUM CHLORIDE 100 ML IV SCH ×4 (05:27→23:08)
[2022-12-11] MEDS: LEVOTHYROXINE SODIUM 25 MCG TABLET PO SCH (05:31)
[2022-12-11] MEDS: PANTOprazole 40 MG TAB PO SCH (05:31)
[2022-12-11 07:49] LABS: Estimated Average Glucose 131 mg/dl; Hemoglobin A1C 6.2 % (4.5-5.6)
[2022-12-11 08:09] LABS: Calcium 9.1 mg/dl (8.6-10.3); Creatinine Clr Calc Pharmacy 59.4 ml/min; Est GFR (African American) 88.7 ml/min; Est GFR (Non-African American) 76.5 ml/min; Potassium 4.2 mmol/L (3.5-5.1)
[2022-12-11] MEDS: ADVANCED PROBIOTIC 1250 MG CAPSULE PO SCH (08:42)
[2022-12-11] MEDS: MULTIVITAMIN TAB PO SCH (08:42)
[2022-12-11] MEDS: ENOXAPARIN INJ 40 MG/0.4 ML SYR SQ SCH (08:43)
[2022-12-11] MEDS: SERTRALINE HCL 50 MG TABLET PO SCH (08:43)
[2022-12-11] MEDS: EUCERIN CR 120 GM JAR TOP SCH (08:44)
[2022-12-11] MEDS: METHYLCELLULOSE POWDER 454 GM JAR PO SCH (08:44)
[2022-12-11 09:38] LABS: Basophils # (auto) 0.08 K/uL (0-0.2); Basophils % (auto) 1.4 %; Eosinophils # (auto) 0.11 K/uL (0-0.50); Hematocrit (blood only) 47.3 % (42.0-52.0); Hemoglobin 15.7 g/dl (14.0-18.0); Immature Granulocytes # (auto) 0.03 K/uL (0.01-0.20); Immature Granulocytes % (auto) 0.5 %; Lymphocytes % (auto) 25.1 %; Mean Corpuscular Hgb Conc 33.2 g/dL (32.0-36.0); Mean Corpuscular Volume 99.4 fL (80.0-100.0); Mean Platelet Volume 9.2 fL (9.4-12.4); Monocytes # (auto) 0.71 K/uL (0.11-0.59); Monocytes % (auto) 12.7 %; Neutrophils # (auto) 3.24 K/uL (1.40-6.50); Neutrophils % (auto) 58.3 %; Platelet Count 407 K/uL (130-400); RDW Coefficient of Variation 14.2 % (11.5-14.5); RDW Standard Deviation 52.3 fL (36.4-46.3); Red Blood Count 4.76 M/uL (4.70-6.10); White Blood Count 5.57 K/ul (4.8-10.8)
--- NOTE | 2022-12-11 17:10 | Hospitalist Progress Note ---
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 Acute Hypoxic respiratory failure Aspiration pneumonia CTA chest showing aspiration pneumonia and left lower lobe Patient oxygen sats were in the low 80s at PCPs office Patient has history of aspiration pneumonia in the past Continue Unasyn Wean oxygen as tolerated, currently still on 4L NC Hypothyroidism continue synthroid, check STH GERD Protonix History of Alzheimer's disease Dementia Moderate intellectual disability Lives at [facility] Prediabetes HA1 6.2%, place on carb controlled diet DVT prophylaxis Lovenox Disposition med/telemetry Full code (2) Hypoxic episode: Admission and Anticipated Discharge Date Admission Date: December 09, 2022 Subjective Remains on oxygen. No events overnight Patient with no complaints currently Review of Systems Review of Systems: as above Physical Exam Physical Exam: sitting in bed scrolling through his ipad, comfortable, no distress Respiratory: breathing comfortably, no wheezing/rhonchi/rales Cardiovascular: regular rate and rhythm, no murmurs/rubs Gastrointestinal (Abdomen): soft, non tender Musculoskeletal: No edema Neurologic: awake, spontaneously moving extremities, very hard of hearing, baseline intellectual impairment Results & Data Results & Data Vital Signs (Past 12 Hours) Vital Signs Temp Pulse Pulse Resp BP Pulse Ox O2 Del Method 12/11/22 16:11 36.6 C 54 L 18 93/55 L 95 Nasal Cannula 12/11/22 14:49 55 L 12/11/22 11:05 36.4 C L 64 16 106/67 97 Nasal Cannula 12/11/22 08:45 Nasal Cannula 12/11/22 08:15 36.7 C 64 20 112/69 92 Nasal Cannula 12/11/22 07:53 64 O2 Flow Rate 12/11/22 16:11 4 12/11/22 14:49 12/11/22 11:05 4 12/11/22 08:45 4 12/11/22 08:15 4 12/11/22 07:53
[2022-12-12] MEDS: AMPICILLIN/SULBACTAM SOD 3,000 MG in 0.9 % SODIUM CHLORIDE 100 ML IV SCH ×4 (05:40→23:42)
[2022-12-12] MEDS: PANTOprazole 40 MG TAB PO SCH (05:42)
[2022-12-12] MEDS: LEVOTHYROXINE SODIUM 25 MCG TABLET PO SCH (05:42)
[2022-12-12 07:03] LABS: Basophils # (auto) 0.08 K/uL (0-0.2); Basophils % (auto) 1.7 %; Eosinophils # (auto) 0.15 K/uL (0-0.50); Eosinophils % (auto) 3.2 %; Hematocrit (blood only) 46.1 % (42.0-52.0); Hemoglobin 15.5 g/dl (14.0-18.0); Immature Granulocytes # (auto) 0.03 K/uL (0.01-0.20); Immature Granulocytes % (auto) 0.6 %; Lymphocytes # (auto) 1.46 K/uL (1.2-3.4); Lymphocytes % (auto) 30.7 %; Mean Corpuscular Hemoglobin 33.1 pg (25.0-34.0); Mean Corpuscular Hgb Conc 33.6 g/dL (32.0-36.0); Mean Corpuscular Volume 98.5 fL (80.0-100.0); Mean Platelet Volume 8.9 fL (9.4-12.4); Monocytes # (auto) 0.61 K/uL (0.11-0.59); Monocytes % (auto) 12.8 %; Neutrophils # (auto) 2.42 K/uL (1.40-6.50); Platelet Count 374 K/uL (130-400); RDW Coefficient of Variation 14.2 % (11.5-14.5); RDW Standard Deviation 51.4 fL (36.4-46.3); Red Blood Count 4.68 M/uL (4.70-6.10); White Blood Count 4.75 K/ul (4.8-10.8)
[2022-12-12 07:26] LABS: BUN Creatinine Ratio 13.6 (10-20); Creatinine Clr Calc Pharmacy 54.9 ml/min; Est GFR (African American) 80.6 ml/min; Est GFR (Non-African American) 69.5 ml/min; Potassium 4.4 mmol/L (3.5-5.1)
[2022-12-12] MEDS: SERTRALINE HCL 50 MG TABLET PO SCH (08:46)
[2022-12-12] MEDS: ADVANCED PROBIOTIC 1250 MG CAPSULE PO SCH (08:46)
[2022-12-12] MEDS: MULTIVITAMIN TAB PO SCH (08:46)
[2022-12-12] MEDS: ENOXAPARIN INJ 40 MG/0.4 ML SYR SQ SCH (08:47)
[2022-12-12] MEDS: METHYLCELLULOSE POWDER 454 GM JAR PO SCH (08:49)
--- NOTE | 2022-12-12 13:22 | Hospitalist Progress Note ---
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 Acute Hypoxic respiratory failure Aspiration pneumonia CTA chest showing aspiration pneumonia and left lower lobe Patient oxygen sats were in the low 80s at PCPs office Patient has history of aspiration pneumonia in the past Continue Unasyn Wean oxygen as tolerated, currently stable on 4L NC. Will need 2 step prior to discharge Hypothyroidism continue synthroid, check STH GERD Protonix History of Alzheimer's disease Dementia Moderate intellectual disability Lives at [facility] Prediabetes HA1 6.2%, place on carb controlled diet DVT prophylaxis Lovenox Disposition --from [facility] [place]. Evaluated by PT/OT yesterday and functionally is at baseline, plan to return to [facility] at discharge. Full code (2) Hypoxic episode: Admission and Anticipated Discharge Date Admission Date: December 09, 2022 Subjective No acute issues overnight Patient forgets that he is wearing oxygen and sometimes takes it off or it falls off Loose stools Tolerating diet Review of Systems Review of Systems: as above Physical Exam Physical Exam: sitting in bed, pleasant and comfortable Respiratory: breathing comfortably on oxygen, no wheezing Cardiovascular: regular rate and rhythm, no murmurs Gastrointestinal (Abdomen): soft, non tender Musculoskeletal: no edema Neurologic: baseline cognitive impairment, awake, spontaneously moving extremities, very hard of hearing Results & Data Results & Data Vital Signs (Past 12 Hours) Vital Signs Temp Pulse Pulse Resp BP Pulse Ox O2 Del Method 12/12/22 11:23 36.7 C 63 20 96/63 L 94 Nasal Cannula 12/12/22 08:45 Nasal Cannula 12/12/22 07:37 36.5 C 60 18 111/73 95 Nasal Cannula 12/12/22 07:20 59 L 12/12/22 03:43 61 18 113/56 L 92 Nasal Cannula O2 Flow Rate 12/12/22 11:23 4 07/29/23 08:45 4 12/12/22 07:37 4 12/12/22 07:20 12/12/22 03:43 4
[2022-12-13] MEDS: AMPICILLIN/SULBACTAM SOD 3,000 MG in 0.9 % SODIUM CHLORIDE 100 ML IV SCH ×3 (06:09→17:56)
[2022-12-13] MEDS: PANTOprazole 40 MG TAB PO SCH (06:12)
[2022-12-13] MEDS: LEVOTHYROXINE SODIUM 25 MCG TABLET PO SCH (06:12)
[2022-12-13 07:53] LABS: Basophils # (auto) 0.08 K/uL (0-0.2); Basophils % (auto) 1.5 %; Eosinophils # (auto) 0.24 K/uL (0-0.50); Eosinophils % (auto) 4.5 %; Hematocrit (blood only) 48.4 % (42.0-52.0); Hemoglobin 16.1 g/dl (14.0-18.0); Immature Granulocytes # (auto) 0.02 K/uL (0.01-0.20); Immature Granulocytes % (auto) 0.4 %; Lymphocytes % (auto) 27.8 %; Mean Corpuscular Hemoglobin 33.1 pg (25.0-34.0); Mean Corpuscular Hgb Conc 33.3 g/dL (32.0-36.0); Mean Corpuscular Volume 99.4 fL (80.0-100.0); Monocytes # (auto) 0.61 K/uL (0.11-0.59); Monocytes % (auto) 11.3 %; Neutrophils # (auto) 2.94 K/uL (1.40-6.50); Neutrophils % (auto) 54.5 %; Platelet Count 356 K/uL (130-400); RDW Coefficient of Variation 14.3 % (11.5-14.5); RDW Standard Deviation 52.8 fL (36.4-46.3); Red Blood Count 4.87 M/uL (4.70-6.10); White Blood Count 5.39 K/ul (4.8-10.8)
[2022-12-13 08:07] LABS: BUN Creatinine Ratio 17.2 (10-20); Calcium 9.2 mg/dl (8.6-10.3); Creatinine Clr Calc Pharmacy 60.3 ml/min; Est GFR (African American) 99.7 ml/min; Potassium 4.1 mmol/L (3.5-5.1)
[2022-12-13] MEDS: METHYLCELLULOSE POWDER 454 GM JAR PO SCH (09:14)
[2022-12-13] MEDS: SERTRALINE HCL 50 MG TABLET PO SCH (09:14)
[2022-12-13] MEDS: ENOXAPARIN INJ 40 MG/0.4 ML SYR SQ SCH (09:14)
[2022-12-13] MEDS: ADVANCED PROBIOTIC 1250 MG CAPSULE PO SCH (09:14)
[2022-12-13] MEDS: MULTIVITAMIN TAB PO SCH (09:14)
--- NOTE | 2022-12-13 13:50 | Hospitalist Progress Note ---
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 Will need 2 step prior to discharge Hypothyroidism continue synthroid, check STH GERD Protonix History of Alzheimer's disease Dementia Moderate intellectual disability Lives at [facility] Prediabetes HA1 6.2%, place on carb controlled diet DVT prophylaxis Lovenox Disposition --from [facility]. Evaluated by PT/OT and functionally is at baseline, plan to return to [facility] at discharge. Full code (2) Hypoxic episode: Admission and Anticipated Discharge Date Admission Date: December 09, 2022 Subjective Doing well. Remains on oxygen Discussed with nurse-- no events overnight. He is getting up and walking to rest room with stand by assist Review of Systems Review of Systems: as above Physical Exam Physical Exam: sleeping but easily arousable. Pleasant and comfortable Respiratory: breathing on 4L NC, no accessory muscle use, no wheezing/rhonchi Cardiovascular: regular rate and rhythm, no murmurs/rubs/gallops Gastrointestinal (Abdomen): soft, non tender, non distended Musculoskeletal: no edema Neurologic: baseline cognitive impairment, hard of hearing, single word answers to simple questions, asleep but easily arousable, cooperative with exam and follows instructions, spontaneously moving extremities Psychiatric: calm Results & Data Results & Data Vital Signs (Past 12 Hours) Vital Signs Temp Pulse Pulse Resp BP Pulse Ox O2 Del Method 12/13/22 12:56 59 L 95 Nasal Cannula 12/13/22 11:03 36.8 C 63 16 105/69 93 Nasal Cannula 12/13/22 09:15 Nasal Cannula, CPAP 12/13/22 07:39 36.7 C 66 18 105/62 96 Nasal Cannula 12/13/22 07:20 61 12/13/22 03:12 36.5 C 58 L 18 100/67 95 Nasal Cannula 12/13/22 03:05 Nasal Cannula, CPAP O2 Flow Rate 12/13/22 12:56 3 12/13/22 11:03 4 12/13/22 09:15 4 12/13/22 07:39 4 12/13/22 07:20 12/13/22 03:12 4 12/13/22 03:05 4
[2022-12-14] MEDS: AMPICILLIN/SULBACTAM SOD 3,000 MG in 0.9 % SODIUM CHLORIDE 100 ML IV SCH ×4 (00:20→13:41)
[2022-12-14] MEDS: PANTOprazole 40 MG TAB PO SCH (05:36)
[2022-12-14] MEDS: LEVOTHYROXINE SODIUM 25 MCG TABLET PO SCH (05:36)
[2022-12-14] MEDS ORDERED: CLOBETASOL~ORDER AWAITING ACTION SCH (08:00)
[2022-12-14] MEDS: ENOXAPARIN INJ 40 MG/0.4 ML SYR SQ SCH (08:39)
[2022-12-14] MEDS: EUCERIN CR 120 GM JAR TOP SCH (08:39)
[2022-12-14] MEDS: SERTRALINE HCL 50 MG TABLET PO SCH (08:40)
[2022-12-14] MEDS: METHYLCELLULOSE POWDER 454 GM JAR PO SCH (08:40)
[2022-12-14] MEDS: ADVANCED PROBIOTIC 1250 MG CAPSULE PO SCH (08:40)
[2022-12-14] MEDS: MULTIVITAMIN TAB PO SCH (08:41)
--- NOTE | 2022-12-14 10:41 | Discharge Summary ---
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 Patient went to see PCP today for a lump on his right arm and when he checked his oxygen it was in the low 80s so he was sent in here. Congesting comfortably and hemodynamically stable. Patient denies any headache or chest pain or belly pain or back pain. No cough. As per caregiver he can swallow okay with regular diet. No diarrhea. Normal bowel movements. No swelling in the legs. No fevers. Ambulates okay. Patient has history of aspiration pneumonitis in the past Principal Diagnosis Aspiration pneumonia Acute hypoxic respiratory failure Discharge Exam Patient was seen in his room on the day of discharge He is more conversive today and answers questions Per nursing staff, he is getting up and walking to restroom with supervision and stand by assist Sitting in bed, playing on his Ipad Breathing comfortably on oxygen, no wheezing/rhonchi Heart sounds-- regular rate and rhythm Extr- no edema Discharge Data Allergies Allergy/AdvReac Type Severity Reaction Status Date / Time sulfamethoxazole Allergy Intermediate rash Verified 12/09/22 20:43 trimethoprim Allergy Intermediate rash Verified 12/09/22 20:43 Consultations 12/09/22 20:32 ED Decision to Admit Stat Ordered Studies 12/09/22 19:20 CT angio chest PE protocol Stat Hospital Course (1) Aspiration pneumonia: (2) Acute respiratory failure with hypoxia: Plan 52-year-old male with past med significant for hypothyroidism, prediabetes, ADAIR on home CPAP, Qftvb-Agbcmkmzv-Rzlqg syndrome, Down syndrome, atrial septal defectprimum s/p repair, s/p mitral valve repair, moderate intellectual disability, diverticulosis, GERD, juvenile idiopathic scoliosis, hearing loss associated with syndrome, s/p cochlear implant, Alzheimer's disease, 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, psoriasis lives at [facility] was brought in because of hypoxia and found to have aspiration pneumonia Acute Hypoxic respiratory failure Aspiration pneumonia CTA chest showing aspiration pneumonia and left lower lobe Patient O2sat was in the 80s in the office He has required 4L NC while here which has been weaned down to 2L He had a 2 step today and will be returning home with oxygen (2L at rest, 2L with ambulation) Hypothyroidism continue synthroid, check STH GERD Protonix History of Alzheimer's disease Dementia Moderate intellectual disability Lives at [facility] Prediabetes HA1 6.2%, place on carb controlled diet Disposition--He is from [facility]. PT/OT evaluation noted that patient is at his baseline and can return to [facility] Total Time Total Time Spent Total Time Spent (In Minutes): 35 Discharge Plan Discharge Items Patient Disposition: Personal Half-Way Reason For Visit: ASPIRATION PNEUMONIA, HYPOXIA Discharge Diagnosis: Aspiration pneumonia Acute hypoxic respiratory failure Condition on Discharge: Good Activity: Resume your previous activity Non-emergency contact: Primary Care Provider Call non-emergency contact if: you have any medication questions Follow-up/Referrals: Madhu Jay MD [Primary Care Provider] - (Date & Time 12/18/2022 1:40 PM Provider Kosta Tovar, DO Department [facility] ) Diet: Carb Consistent or DM2 and Finger Foods Addtl Attending Provider Instructions: You were admitted for pneumonia (left lower base) consistent with aspiration pneumonia You had 5 days of IV antibiotics here and will be discharged on Augmentin to finish another 2 days You will be discharged on 2L oxygen at rest and 3L oxygen with ambulation. Pending Studies at Discharge: No Stand-Alone Forms: [facility] [employer], Smoking Cessation Skilled Items Patient informed of condition?: Yes DNR: No Discharge Level of Care: Other Communicable Disease: No Discharge Prognosis: Stable Lines: None Urinary Catheter: No Medications and DC Order Prescriptions: New Advanced Probiotic 625 mg (10 billion cell) Capsule 2 cap PO DAILY 7 Days Qty: 14 0RF amoxicillin-pot clavulanate 500-125 mg tablet 1 tab PO BID 2 Days Qty: 4 0RF Continued multivitamin Tablet 1 tab PO QAM ketoconazole 2 % Shampoo 1 dose TOPICAL 3XWK Rx Instructions: MON, WED, & FRI. levothyroxine [Synthroid] 25 mcg Tablet 25 mcg PO QAM clobetasol 0.05 % Solution 2 applic TOPICAL WK Rx Instructions: APPLY TWICE A DAY ON TUESDAYS ONLY sertraline 50 mg Tablet 50 mg PO QAM Eucerin Cream 1 applic TOPICAL 3XWK Rx Instructions: TUES, THURS, & SAT EVENINGS Biotene Dry Mouth Oral Rinse Mouthwash 1 tbsp PO BID Citrucel Sugar Free Powder 1 ea PO DAILY Rx Instructions: 1 heaping tablespoon mixed in 8 ounces of water and drink (DME) Oxygen Home Liters Per Minute See Rx Instructions .ROUTE .MEDSUPPLY Qty: 1 0RF Rx Instructions: 2 Liters via nasal cannula at night and while sleepigng Ear Wax Drops 6.5 % Drops 4 drp OTIC (EAR) 2XWK Rx Instructions: TUES & THURS AT HS. albuterol sulfate 90 mcg/actuation Hfa Aerosol Inhaler 2 puff INHALATION Q4H PRN (Reason: Wheezing) fluoride (sodium) 1.1 % gel 1 ea PO HS Biotene Moisturizing Mouth [place],Non-Aerosol 1 spray MUCOUS MEMBRANE QPM pantoprazole 40 mg tablet,delayed release (DR/EC) 40 mg PO DAILYBB Rx Instructions: at least 30 minutes before breakfast Discharge Orders: Discharge Order (Routine); Ordered 12/14/22 Ordered By: Jose Roberto Cho/Other Patient Handouts: Prediabetes, 5 Steps for Eating Healthier Admission Data Admit Date/Time: 12/09/22 22:05 Attending Provider: Jose Roberto Omer Admit Provider: Lucio Blank Primary Care Provider: Madhu Jay Other Providers: Lucio Blank
[2022-12-15] MEDS ORDERED: CLOBETASOL EXT SCH (09:00)
== END 2022-12-14 16:31 | disposition home or self-care (01) | DRG 177 ==
LOC: ED 17:30 → EDINP 22:05 → 2W 12-10 00:57